=== PATIENT | male | born 1990 | race Hispanic/Latino ===

== ENCOUNTER 2019-01-07 10:41 | Inpatient (IN) | payer MEDICAID, OTHER ==
[2019-01-07] MEDS ORDERED: Sodium Chloride 0.9% 1,000 ML IV STA (11:10)
[2019-01-07 11:46] LABS: BASO # 0.03 K/mm3 (0.0-2.0); BASO % 0.3 % (0.0-3.0); EOS # 0.1 (0.0-0.7); EOS % 1.3 % (1.5-5.0); HEMOGLOBIN 14.1 g/dL (14.0-18.0); LYMPH # 1.9 (1.2-3.4); LYMPH % 17.4 % (22.0-35.0); MEAN CELL VOLUME 82.3 fl (80.0-105.0); MEAN CORPUSCULAR HEMOGLOBIN 27.5 pg (25.0-35.0); MEAN CORPUSCULAR HGB CONC 33.4 g/dl (31.0-37.0); MEAN PLATELET VOLUME 9.4 fl (7.0-11.0); MONO # 0.7 (0.1-0.6); MONO % 6.1 % (1.0-6.0); RBC 5.13 10^6/uL (3.5-6.1); RED CELL DISTRIBUTION WIDTH 14.8 % (11.5-14.5); WHITE BLOOD COUNT 10.8 10^3/uL (4.5-11.0)
[2019-01-07 11:55] LABS: INR 1.23; PARTIAL THROMBOPLASTIN TIME 37.8 Seconds (26.9-38.3); PROTHROMBIN TIME 13.9 SECONDS (9.4-12.5)
[2019-01-07 11:57] LABS: PH,URINE 7.5 (4.7-8.0); URINE APPEARANCE CLEAR (CLEAR); URINE BILIRUBIN NEGATIVE (NEGATIVE); URINE BLOOD TRACE-LYSED (NEGATIVE); URINE COLOR YELLOW (YELLOW); URINE GLUCOSE (UA) NEGATIVE (NEGATIVE); URINE LEUKOCYTE ESTERASE NEGATIVE Leu/uL (NEGATIVE); URINE PROTEIN NEGATIVE mg/dL (<30 mg/dL)
[2019-01-07 12:08] LABS: ALT/SGPT 467 U/L (7-56); AST/SGOT 350 U/L (17-59); BLOOD UREA NITROGEN 10 mg/dL (7-21); CALCIUM 9.2 mg/dL (8.4-10.5); GFR NON-AFRICAN AMERICAN > 60
[2019-01-07 12:16] LABS: URINE WBC 0 - 2 /hpf (0-6)
[2019-01-07 12:17] LABS: URINE BACTERIA MANY /hpf; URINE COARSE GRANULAR CAST TRACE /hpf; URINE EPITHELIAL CELLS 0 - 2 /hpf (0-5)
[2019-01-07 12:18] LABS: URINE AMORPHOUS SEDIMENT FEW /hpf
--- NOTE | 2019-01-07 12:20 | US ---
Date of service: 01/07/2019 HISTORY: focus RUQ, pancreas COMPARISON: CT abdomen and pelvis 07/24/2015 TECHNIQUE: Grayscale imaging was performed. FINDINGS: LIVER: Measures 21.0 cm. There is diffuse increased echogenicity of the liver parenchyma. No mass. No intrahepatic bile duct dilatation. GALLBLADDER: There are multiple gallstones. No wall thickening or pericholecystic fluid. The sonographic Pritchett's sign is negative. COMMON BILE DUCT: Measures 8.1 mm. Moderate diffuse dilatation of CT abdomen the common bile duct without evidence for choledocholithiasis PANCREAS: Obscured by bowel gas. RIGHT KIDNEY: Measures 12.5cm. Normal echogenicity. No calculus, mass, or hydronephrosis. LEFT KIDNEY: Measures 11.1cm. Normal echogenicity. No calculus, mass, or hydronephrosis. SPLEEN: Normal in size and contour. No mass. AORTA: No aneurysmal dilatation. IVC: Unremarkable. OTHER FINDINGS: None. IMPRESSION: 1. Cholelithiasis. Moderate diffuse dilatation of the common bile duct without sonographic evidence for choledocholithiasis. Please note this examination is limited due to patient body habitus and bowel gas. Correlation with MRCP is recommended for further evaluation and to exclude distal obstruction/choledocholithiasis. 2. Enlarged fatty liver. 3. Pancreas is obscured by bowel gas.
[2019-01-07 12:47] LABS: LIPASE 24648 U/L (23-300)
[2019-01-07 13:59] LABS: HDL CHOLESTEROL 37 mg/dL (29-60)
[2019-01-07 14:10] LABS: LDL CHOLESTEROL 103 mg/dL (0-129)
[2019-01-07] MEDS: Lactated Ringer's 1,000 ML IV SCH (14:13)
--- NOTE | 2019-01-07 14:49 | CP.PCM.HP ---
<Ariel Sommer - Last Filed: 01/07/19 15:56> History of Present Illness - History of Present Illness History of Present Illness: CC: RUQ/Epigastric Pain 28M w/ no significant pmh presented to [facility] on 01[place]07 w/ c/o of RUQ / Epigastric pain on going over the past 24 hours. Patient reported that he ate some spicy foods yesterday which brought about this current episode; reports he's had a previous episode of abdominal pain in the past this episode being significantly worse. Pain is described as a sharp which started in the RUQ and radiates into the Epigastric/LUQ regions. Denies any radiation to the back. Reports that eating makes his pain worse. Has had one episode of NBNB vomitus in the past 24 hours. 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 Allergies: NKDA Fam Hx: Mother DM, Father healthy Present on Admission - Present on Admission Any Indicators Present on Admission: No Review of Systems - Review of Systems All systems: reviewed and no additional remarkable complaints except Review of Systems: as per HPI Past Patient History - Infectious Disease Hx of Infectious Diseases: None - Past Social History Smoking Status: Never Smoked - CARDIAC Hx Cardiac Disorders: No - PULMONARY Hx Respiratory Disorders: No Hx Asthma: No - ENDOCRINE/METABOLIC Hx Endocrine Disorders: No Hx Diabetes Mellitus Type 1: No Hx Diabetes Mellitus Type 2: No - MUSCULOSKELETAL/RHEUMATOLOGICAL Hx Musculoskeletal Disorders: No - GASTROINTESTINAL Hx Gastrointestinal Disorders: No Hx Gall Bladder Disease: No Hx Gastroesophageal Reflux: No - PSYCHIATRIC Hx Substance Use: No - SURGICAL HISTORY Hx Appendectomy: No Other/Comment: left hamstring surgery - ANESTHESIA Hx Anesthesia: Yes Hx Anesthesia Reactions: No Hx Malignant Hyperthermia: No Meds Allergies/Adverse Reactions: Allergies Allergy/AdvReac Type Severity Reaction Status Date / Time No Known Allergies Allergy Verified 01/07/19 14:55 Physical Exam - Constitutional Appears: Well, Non-toxic, No Acute Distress - Head Exam Head Exam: ATRAUMATIC, NORMOCEPHALIC - Eye Exam Eye Exam: EOMI, Normal appearance. absent: Scleral icterus - Respiratory Exam Respiratory Exam: Clear to Auscultation Bilateral, NORMAL BREATHING PATTERN. absent: Rales, Rhonchi, Wheezes - Cardiovascular Exam Cardiovascular Exam: REGULAR RHYTHM, RRR. absent: Systolic Murmur - GI/Abdominal Exam Additional comments: Obese abdomen, soft non tender, mild discomfort on deep palpation. Pritchett's sign negative No guarding/ Rebound tenderness McBurney's point nontender - Extremities Exam Extremities exam: Positive for: normal inspection, pedal pulses present. Negative for: pedal edema - Back Exam Back exam: absent: CVA tenderness (L), CVA tenderness (R) - Neurological Exam Neurological exam: Alert, Oriented x3 - Psychiatric Exam Psychiatric exam: Normal Affect, Normal Mood - Skin Skin Exam: Dry, Intact, Normal Color, Warm Results - Vital Signs Recent Vital Signs: Last Vital Signs Temp 98.3 F 01/07/19 13:24 Pulse 85 01/07/19 13:24 Resp 18 01/07/19 13:24 BP 111/63 01/07/19 13:24 Pulse Ox 98 01/07/19 13:24 - Labs Result Diagrams: 01/07/19 11:20 01/07/19 11:20 Labs: Laboratory Results - last 24 hr 01/07/19 01/07/19 01/07/19 11:10 11:20 11:20 WBC 10.8 RBC 5.13 Hgb 14.1 Hct 42.2 MCV 82.3 MCH 27.5 MCHC 33.4 RDW 14.8 H Plt Count 315 MPV 9.4 Neut % (Auto) 74.9 H Lymph % (Auto) 17.4 L [place] % (Auto) 6.1 H Eos % (Auto) 1.3 L Baso % (Auto) 0.3 Lymph # (Auto) 1.9 [place] # (Auto) 0.7 H Eos # (Auto) 0.1 Baso # (Auto) 0.03 Absolute Neuts (auto) 8.07 H PT 13.9 H INR 1.23 APTT 37.8 Sodium Potassium Chloride Carbon Dioxide Anion Gap BUN Creatinine Est GFR ( Amer) Est GFR (Non-Af Amer) Random Glucose Calcium Magnesium Total Bilirubin AST ALT Alkaline Phosphatase Total Protein Albumin Globulin Albumin/Globulin Ratio Triglycerides Cholesterol HDL Cholesterol Lipase Urine Color Yellow Urine Appearance Clear Urine pH 7.5 Ur Specific [place] 1.010 Urine Protein Negative Urine Glucose (UA) Negative Urine Ketones Negative Urine Blood Trace-lysed H Urine Nitrate Negative Urine Bilirubin Negative Urine Urobilinogen 1.0 H Ur Leukocyte Esterase Negative Urine RBC 2 - 5 H Urine WBC 0 - 2 Ur Epithelial Cells 0 - 2 Amorphous Sediment Few Urine Bacteria Many Coarse Granular Casts Trace Urine Other Uyeast 01/07/19 01/07/19 11:20 11:20 WBC RBC Hgb Hct MCV MCH MCHC RDW Plt Count MPV Neut % (Auto) Lymph % (Auto) [place] % (Auto) Eos % (Auto) Baso % (Auto) Lymph # (Auto) [place] # (Auto) Eos # (Auto) Baso # (Auto) Absolute Neuts (auto) PT INR APTT Sodium 139 Potassium 3.8 Chloride 104 Carbon Dioxide 27 Anion Gap 12 BUN 10 Creatinine 0.5 L Est GFR ( Amer) > 60 Est GFR (Non-Af Amer) > 60 Random Glucose 101 Calcium 9.2 Magnesium 2.2 Total Bilirubin 1.3 AST 350 H ALT 467 H Alkaline Phosphatase 120 Total Protein 7.9 Albumin 4.0 Globulin 3.9 Albumin/Globulin Ratio 1.0 L Triglycerides 163 H Cholesterol 175 HDL Cholesterol 37 Lipase 36651 H Urine Color Urine Appearance Urine pH Ur Specific [place] Urine Protein Urine Glucose (UA) Urine Ketones Urine Blood Urine Nitrate Urine Bilirubin Urine Urobilinogen Ur Leukocyte Esterase Urine RBC Urine WBC Ur Epithelial Cells Amorphous Sediment Urine Bacteria Coarse Granular Casts Urine Other Assessment & Plan - Assessment and Plan (Free Text) Assessment: 28M w/ no significant pmh presented to [facility] [place] on 01/07 w/ c/o of RUQ / Epigastric pain and N/V. Admitted for management and treatment of gallstone pancreatitis. Plan: Gallstone Pancreatitis: Lipase Elevated Abd US: Cholelithiasis - dilatation of CBD w/o evidence of choledocolithiasis; w/o evidence of cholecystitis MRCP for further evaluation NPO Diet IVF - LR 200cc/hr Toradol 30mg Q6H Maximum 4 doses Zofran 4mg Q6H PRN Lipid Panel - Mild triglyceride elevation Surgery Consulted, Appreciate Reccs GI Consulted, Appreciate Reccs Fam Hx DM A1C Pending GI/DVT PPX SCD / Protonix IVP Dispo: Admit to med/surg Patient was seen, examined, Discussed w/ attending Dr. Sherry Sommer DO PGY1 - Internal Medicine Assembly Inspector - Hospitalist Admission Note - Date & Time Date: 01/07/19 Time: 16:16 <Sherry Sommer R - Last Filed: 01/07/19 17:25> Results - Vital Signs Recent Vital Signs: Last Vital Signs Temp 98.3 F 01/07/19 13:24 Pulse 85 01/07/19 13:24 Resp 18 01/07/19 13:24 BP 111/63 01/07/19 13:24 Pulse Ox 98 01/07/19 13:24 - Labs Result Diagrams: 01/07/19 11:20 01/07/19 11:20 Labs: Laboratory Results - last 24 hr 01/07/19 01/07/19 01/07/19 11:10 11:20 11:20 WBC 10.8 RBC 5.13 Hgb 14.1 Hct 42.2 MCV 82.3 MCH 27.5 MCHC 33.4 RDW 14.8 H Plt Count 315 MPV 9.4 Neut % (Auto) 74.9 H Lymph % (Auto) 17.4 L [place] % (Auto) 6.1 H Eos % (Auto) 1.3 L Baso % (Auto) 0.3 Lymph # (Auto) 1.9 [place] # (Auto) 0.7 H Eos # (Auto) 0.1 Baso # (Auto) 0.03 Absolute Neuts (auto) 8.07 H PT 13.9 H INR 1.23 APTT 37.8 Sodium Potassium Chloride Carbon Dioxide Anion Gap BUN Creatinine Est GFR ( Amer) Est GFR (Non-Af Amer) Random Glucose Calcium Magnesium Total Bilirubin AST ALT Alkaline Phosphatase Total Protein Albumin Globulin Albumin/Globulin Ratio Triglycerides Cholesterol LDL Cholesterol Direct HDL Cholesterol Lipase Urine Color Yellow Urine Appearance Clear Urine pH 7.5 Ur Specific [place] 1.010 Urine Protein Negative Urine Glucose (UA) Negative Urine Ketones Negative Urine Blood Trace-lysed H Urine Nitrate Negative Urine Bilirubin Negative Urine Urobilinogen 1.0 H Ur Leukocyte Esterase Negative Urine RBC 2 - 5 H Urine WBC 0 - 2 Ur Epithelial Cells 0 - 2 Amorphous Sediment Few Urine Bacteria Many Coarse Granular Casts Trace Urine Other Uyeast 01/07/19 01/07/19 11:20 11:20 WBC RBC Hgb Hct MCV MCH MCHC RDW Plt Count MPV Neut % (Auto) Lymph % (Auto) [place] % (Auto) Eos % (Auto) Baso % (Auto) Lymph # (Auto) [place] # (Auto) Eos # (Auto) Baso # (Auto) Absolute Neuts (auto) PT INR APTT Sodium 139 Potassium 3.8 Chloride 104 Carbon Dioxide 27 Anion Gap 12 BUN 10 Creatinine 0.5 L Est GFR ( Amer) > 60 Est GFR (Non-Af Amer) > 60 Random Glucose 101 Calcium 9.2 Magnesium 2.2 Total Bilirubin 1.3 AST 350 H ALT 467 H Alkaline Phosphatase 120 Total Protein 7.9 Albumin 4.0 Globulin 3.9 Albumin/Globulin Ratio 1.0 L Triglycerides 163 H Cholesterol 175 LDL Cholesterol Direct 103 HDL Cholesterol 37 Lipase 82430 H Urine Color Urine Appearance Urine pH Ur Specific [place] Urine Protein Urine Glucose (UA) Urine Ketones Urine Blood Urine Nitrate Urine Bilirubin Urine Urobilinogen Ur Leukocyte Esterase Urine RBC Urine WBC Ur Epithelial Cells Amorphous Sediment Urine Bacteria Coarse Granular Casts Urine Other Attending/Attestation - Attestation I have personally seen and examined this patient.: Yes I have fully participated in the care of the patient.: Yes I have reviewed all pertinent clinical information: Yes Notes (Text): Patient seen and examined by me with resident at approximately 1:25PM on 01/07/19 in the emergency room. Case including HPI, physical exam, and assessment and plan discussed with resident. Agree with above with following additions/corrections. Patient is 28-year-old male with no significant past medical history that presented to the emergency room with abdominal pain. Patient states that the pain started after lunch yesterday. He states he had some spicy food and felt some burning and pain in his abdomen. Patient states that he tried apple cider vinegar to make the "acid feeling in stomach go away." Patient states he had approximately 5 episodes of vomiting yesterday. States this happened approximately 3 years ago and the pain went away on its own. Patient states that the pain started in her right upper quadrant and has traveled to the left upper quadrant today. Patient states that tumeric tea seemed to help the pain. Patient describes the pain as a "burning." Patient states he had one episode of vomiting today. Pain comes and goes. Patient denies any current nausea or vomiting. No associated fevers or chills. No chest pain or shortness of breath. No headaches or dizziness. No diarrhea or constipation. No dysuria. 12 point review of systems reviewed by me. Please see above HPI, all other systems negative. Family history: Mother is alive and has diabetes. Father is alive and healthy. Physical exam: General: Awake and alert lying in bed in no acute distress. HEENT: Normocephalic, atraumatic. Extraocular muscles intact, pupils equal and reactive, no scleral icterus. Oropharynx is pink and moist. No pharyngeal erythema or exudate appreciated. Neck is supple. Hearing grossly intact. Ears and nose externally unremarkable. Cardiovascular: Normal rhythm. Normal S1 and S2. No murmurs, rubs, or gallops appreciated Pulmonary: Normal respiratory effort. No rhonchi, rales, or wheezing appreciated. Gastrointestinal: Soft, nondistended. Nontender (patient received pain medication prior to exam). Positive bowel sounds all 4 quadrants. No guarding. Negative Pritchett's sign. Morbidly obese abdomen. Musculoskeletal: Moves all extremities. No calf tenderness. No edema appreciated. Central nervous system: AAOx3. CN 2-12 grossly intact. 5/5 muscle strength all extremities. Dermatologic: Skin warm and dry. Assessment and plan: Patient is 28-year-old male with no significant past medical history that presented to the emergency room with abdominal pain. 1. Upper abdominal pain secondary to gallstone pancreatitis. Lipase 24,648. Abdominal ultrasound per radiologist showed cholelithiasis, moderate diffuse dilatation of the common bile duct without sonographic evidence for choledocholithiasis, examination is limited due to patient body habitus and bowel gas, correlation with MRCP is recommended; enlarged fatty liver; pancreas is obscured by bowel gas. GI consulted, follow-up recommendations. Surgical team following, recommendations appreciated. Patient made NPO. Placed on IV fluids. Follow up MRCP. 2. Transaminitis. May be secondary to gallstones. Follow up MRCP. Follow up repeat labs in AM. GI consulted, follow up recommendations. 3. Morbid obesity. Diet and exercise discussed with patient. Case was discussed in detail with the patient regarding current diagnosis and treatment plan. All questions answered.
--- NOTE | 2019-01-07 15:56 | CP.PCM.CON ---
History of Present Illness - History of Present Illness History of Present Illness: General Surgery Consult Note for Dr. Jo Patient is a 28-year-old morbidly obese M who presents to [facility] [place] with abdominal pain worsening over the last day and vomiting x1 day. Patient states that the pain is localized to his RUQ, non-radiating, intermittent, and achy in quality. Patient quantifies his pain at 9/10 at its worst. Patient admits that provoking factors include eating spicy foods/ marinara sauce. Patient denies alleviating factors. Patient reports he had similar pain for the past 2 years, but he says he was compelled to come to the ED today because the pain was "more severe" this time. Patient says that in previous similar episodes, his pain would be quelled by drinking turmeric and/or apple vinegar cider. Patient admits to associated non-bloody / non-bilious episodes of vomiting today. ROS otherwise unremarkable for fever, chills, hematochezia, and/or hematemesis. PMH: Patient denies PSH: Orthopedic leg surgery Medications: Patient denies Allergies: NKDA PMD: Jarocho Osei Review of Systems - Constitutional Constitutional: As Per HPI - Cardiovascular Cardiovascular: As Per HPI. absent: Chest Pain at Rest, Dyspnea on Exertion, Irregular Heart Rhythm, Lightheadedness, Paroxysmal Nocturnal Dyspnea, Pedal Edema, Syncope - Respiratory Respiratory: As Per HPI. absent: Cough, Dyspnea, Hemoptysis, Wheezing, Snoring, Pain on Inspiration, Chest Congestion, Excessive Mucous Production, Change in Mucous Color, Pain with Coughing - Gastrointestinal Gastrointestinal: Abdominal Pain, Vomiting. absent: Belching, Bloating, Coffee Ground Emesis, Heartburn, Hematemesis, Hematochezia, Loose Stools - Musculoskeletal Musculoskeletal: As Per HPI - Integumentary Integumentary: As Per HPI Past Patient History - Infectious Disease Hx of Infectious Diseases: None - Past Social History Smoking Status: Never Smoked - CARDIAC Hx Cardiac Disorders: No - PULMONARY Hx Respiratory Disorders: No Hx Asthma: No - ENDOCRINE/METABOLIC Hx Endocrine Disorders: No Hx Diabetes Mellitus Type 1: No Hx Diabetes Mellitus Type 2: No - MUSCULOSKELETAL/RHEUMATOLOGICAL Hx Musculoskeletal Disorders: No - GASTROINTESTINAL Hx Gastrointestinal Disorders: No Hx Gall Bladder Disease: No Hx Gastroesophageal Reflux: No - PSYCHIATRIC Hx Substance Use: No - SURGICAL HISTORY Hx Appendectomy: No Other/Comment: left hamstring surgery - ANESTHESIA Hx Anesthesia: Yes Hx Anesthesia Reactions: No Hx Malignant Hyperthermia: No Meds Allergies/Adverse Reactions: Allergies Allergy/AdvReac Type Severity Reaction Status Date / Time No Known Allergies Allergy Verified 01/07/19 14:55 - Medications Medications: Current Medications Lactated Ringer's (Lactated Ringer's) 1,000 mls @ 200 mls/hr IV .Q5H OLGA Last Admin: 01/07/19 14:13 Dose: 200 mls/hr Ketorolac Tromethamine (Toradol) 30 mg IVP Q6H PRN PRN Reason: Pain, moderate (4-7) Ondansetron HCl (Zofran Inj) 4 mg IVP Q6H PRN PRN Reason: Nausea/Vomiting Physical Exam - Constitutional Appears: Non-toxic, No Acute Distress - Head Exam Head Exam: ATRAUMATIC, NORMAL INSPECTION, NORMOCEPHALIC - Eye Exam Eye Exam: EOMI, Normal appearance Pupil Exam: NORMAL ACCOMODATION, PERRL - ENT Exam ENT Exam: Mucous Membranes Moist, Normal Exam - Neck Exam Neck exam: Positive for: Normal Inspection - Respiratory Exam Respiratory Exam: Clear to Auscultation Bilateral, NORMAL BREATHING PATTERN. absent: Accessory Muscle Use, Chest Wall Tenderness, Decreased Breath Sounds, Rales, Rhonchi, Wheezes, Respiratory Distress, Stridor - Cardiovascular Exam Cardiovascular Exam: REGULAR RHYTHM, +S1, +S2. absent: Bradycardia, Tachycardia, Irregular Rhythm, Systolic Murmur - GI/Abdominal Exam GI & Abdominal Exam: Normal Bowel Sounds, Soft. absent: Bruit, Guarding, Pulsatile Mass, Tenderness - Extremities Exam Extremities exam: Positive for: normal inspection - Back Exam Back exam: NORMAL INSPECTION - Neurological Exam Neurological exam: Alert, CN II-XII Intact, Oriented x3 - Psychiatric Exam Psychiatric exam: Normal Affect, Normal Mood - Skin Skin Exam: Dry, Intact, Normal Color, Warm Results - Vital Signs Recent Vital Signs: Last Vital Signs Temp 98.3 F 01/07/19 13:24 Pulse 85 01/07/19 13:24 Resp 18 01/07/19 13:24 BP 111/63 01/07/19 13:24 Pulse Ox 98 01/07/19 13:24 - Labs Result Diagrams: 01/07/19 11:20 01/07/19 11:20 Labs: Laboratory Results - last 24 hr 01/07/19 01/07/19 01/07/19 11:10 11:20 11:20 WBC 10.8 RBC 5.13 Hgb 14.1 Hct 42.2 MCV 82.3 MCH 27.5 MCHC 33.4 RDW 14.8 H Plt Count 315 MPV 9.4 Neut % (Auto) 74.9 H Lymph % (Auto) 17.4 L Lamb % (Auto) 6.1 H Eos % (Auto) 1.3 L Baso % (Auto) 0.3 Lymph # (Auto) 1.9 Lamb # (Auto) 0.7 H Eos # (Auto) 0.1 Baso # (Auto) 0.03 Absolute Neuts (auto) 8.07 H PT 13.9 H INR 1.23 APTT 37.8 Sodium Potassium Chloride Carbon Dioxide Anion Gap BUN Creatinine Est GFR ( Amer) Est GFR (Non-Af Amer) Random Glucose Calcium Magnesium Total Bilirubin AST ALT Alkaline Phosphatase Total Protein Albumin Globulin Albumin/Globulin Ratio Triglycerides Cholesterol LDL Cholesterol Direct HDL Cholesterol Lipase Urine Color Yellow Urine Appearance Clear Urine pH 7.5 Ur Specific [place] 1.010 Urine Protein Negative Urine Glucose (UA) Negative Urine Ketones Negative Urine Blood Trace-lysed H Urine Nitrate Negative Urine Bilirubin Negative Urine Urobilinogen 1.0 H Ur Leukocyte Esterase Negative Urine RBC 2 - 5 H Urine WBC 0 - 2 Ur Epithelial Cells 0 - 2 Amorphous Sediment Few Urine Bacteria Many Coarse Granular Casts Trace Urine Other Uyeast 01/07/19 01/07/19 11:20 11:20 WBC RBC Hgb Hct MCV MCH MCHC RDW Plt Count MPV Neut % (Auto) Lymph % (Auto) [place] % (Auto) Eos % (Auto) Baso % (Auto) Lymph # (Auto) [place] # (Auto) Eos # (Auto) Baso # (Auto) Absolute Neuts (auto) PT INR APTT Sodium 139 Potassium 3.8 Chloride 104 Carbon Dioxide 27 Anion Gap 12 BUN 10 Creatinine 0.5 L Est GFR ( Amer) > 60 Est GFR (Non-Af Amer) > 60 Random Glucose 101 Calcium 9.2 Magnesium 2.2 Total Bilirubin 1.3 AST 350 H ALT 467 H Alkaline Phosphatase 120 Total Protein 7.9 Albumin 4.0 Globulin 3.9 Albumin/Globulin Ratio 1.0 L Triglycerides 163 H Cholesterol 175 LDL Cholesterol Direct 103 HDL Cholesterol 37 Lipase 89191 H Urine Color Urine Appearance Urine pH Ur Specific [place] Urine Protein Urine Glucose (UA) Urine Ketones Urine Blood Urine Nitrate Urine Bilirubin Urine Urobilinogen Ur Leukocyte Esterase Urine RBC Urine WBC Ur Epithelial Cells Amorphous Sediment Urine Bacteria Coarse Granular Casts Urine Other Assessment & Plan - Assessment and Plan (Free Text) Assessment: Abdominal Pain Likely Secondary to Gallstone Pancreatitis Plan: - Aggressive fluid resuscitation - NPO - GI consulted (Dr. Manjarrez); Recommendations appreciated - Antiemetics - F/U on MRCP - Likely surgical intervention during this admission. Discussed with Dr. Sandro Higgins PGY1
[2019-01-07] MEDS ORDERED: Pneumococcal 23-Valent Vaccine IM ONE (17:25)
[2019-01-07] MEDS ORDERED: Influenza Vaccine 60 mcg/0.5 mL SYR (4YR UP) IM ONE (17:25)
[2019-01-07 17:26] VITALS: BMI 48.4
--- NOTE | 2019-01-07 23:05 | ED PDOC ---
Arrival/HPI - General Chief Complaint: Abdominal Pain Time Seen by Provider: 01/07/19 11:02 Historian: Patient - History of Present Illness Narrative History of Present Illness (Text): 28 y/o male with PMH of obesity presents to the ED c/o abdominal pain and vomiting x 1 day. Last vomited 1 hour prior to arrival. Pain is located epigastrically and is described as burning and sharp. Pt has experienced this pain before intermittently over the last 2 years and it usually resolves without intervention. Pain typically worsens after eating spicy foods and in stressful situations. Pt has not taken any medication for his symptoms. Denies alcohol use. Denies fevers, chills, diarrhea, constipation, urinary symptoms, testicular pain/swelling, hematemsis, melena, chest pain, SOB, back pain, neck pain, headache, dizziness, or any other associated symptoms. Past Medical History - Provider Review Nursing Documentation Reviewed: Yes - Past History Past History: No Previous - Infectious Disease Hx of Infectious Diseases: None - Cardiac Hx Cardiac Disorders: No - Pulmonary Hx Respiratory Disorders: No Hx Asthma: No - HEENT Hx HEENT Disorder: No - Renal Hx Renal Disorder: No - Endocrine/Metabolic Hx Endocrine Disorders: No Hx Diabetes Mellitus Type 1: No Hx Diabetes Mellitus Type 2: No - Hematological/Oncological Hx Blood Disorders: No - Integumentary Hx Dermatological Disorder: No - Musculoskeletal/Rheumatological Hx Musculoskeletal Disorders: No Hx Falls: No - Gastrointestinal Hx Gastrointestinal Disorders: No Hx Gall Bladder Disease: No Hx Gastroesophageal Reflux: No - Genitourinary/Gynecological Hx Genitourinary Disorders: No - Psychiatric Hx Psychophysiologic Disorder: Yes (OBESITY) Hx Substance Use: No - Past Surgical History Past Surgical History: No Previous - Surgical History Hx Appendectomy: No Other/Comment: left hamstring surgery -TENDON RELEASE - Anesthesia Hx Anesthesia: Yes Hx Anesthesia Reactions: No Hx Malignant Hyperthermia: No - Suicidal Assessment Plan: No Suicide Risk Precautions: None Family/Social History - Physician Review Nursing Documentation Reviewed: Yes Family/Social History: No Known Family HX Smoking Status: Never Smoked Hx Alcohol Use: No Hx Substance Use: No Allergies/Home Meds Allergies/Adverse Reactions: Allergies No Known Allergies Allergy (Verified 01/07/19 14:55) Review of Systems - Review of Systems Constitutional: Normal. absent: Fatigue, Fevers Eyes: Normal. absent: Vision Changes ENT: Normal. absent: Sore Throat, Sinus Congestion Respiratory: Normal. absent: SOB, Cough Cardiovascular: Normal. absent: Chest Pain, Palpitations Gastrointestinal: Abdominal Pain, Nausea, Vomiting, Appetite Changes. absent: Stool Changes, Hematochezia, Hematemesis Genitourinary Male: Normal. absent: Dysuria, Frequency Musculoskeletal: Normal. absent: Arthralgias, Back Pain, Neck Pain Skin: Normal. absent: Rash Neurological: Normal. absent: Headache, Dizziness Endocrine: Normal Hemo/Lymphatic: Normal Psychiatric: Normal Physical Exam Vital Signs Reviewed: Yes Vital Signs Temp Pulse Resp BP Pulse Ox 01/07/19 13:24 98.3 F 85 18 111/63 98 01/07/19 10:49 98.1 F 91 H 18 128/69 98 Temperature: Afebrile Blood Pressure: Normal Pulse: Regular Respiratory Rate: Normal Appearance: Positive for: Well-Appearing, Non-Toxic, Comfortable Pain Distress: None Mental Status: Positive for: Alert and Oriented X 3 - Systems Exam Head: Present: Atraumatic, Normocephalic Pupils: Present: PERRL Extroacular Muscles: Present: EOMI Conjunctiva: Present: Normal Mouth: Present: Moist Mucous Membranes Neck: Present: Normal Range of Motion. No: Meningeal Signs, Paraspinal T enderness Respiratory/Chest: Present: Clear to Auscultation, Good Air Exchange. No: Respiratory Distress, Accessory Muscle Use Cardiovascular: Present: Regular Rate and Rhythm, Normal S1, S2, Peripheal Pulses Present Abdomen: Present: Tenderness (RUQ, epigastric), Normal Bowel Sounds. No: Distention, Peritoneal Signs, Rebound, Guarding Back: Present: Normal Inspection. No: CVA Tenderness, Paraspinal Tenderness Upper Extremity: Present: Normal Inspection, Normal ROM, NORMAL PULSES, Neurovascularly Intact, Capillary Refill < 2s. No: Cyanosis, Edema, Temperature Abnormalties Lower Extremity: Present: Normal Inspection, NORMAL PULSES, Normal ROM, Neurovascularly Intact, Capillary Refill < 2 s. No: Edema, Temperature Abnormalties Neurological: Present: GCS=15, CN II-XII Intact, Speech Normal, Motor Func Grossly Intact, Normal Sensory Function, Gait Normal Skin: Present: Warm, Dry, Normal Color. No: Rashes Psychiatric: Present: Alert, Oriented x 3, Normal Insight, Normal Concentration, Normal Affect, Normal Mood Medical Decision Making ED Course and Treatment: Initial Plan: * CBC, CMP * Lipase * Coags * RUQ US * IVF * Zofran * Toradol RUQ US significant for cholelithiasis and common bile duct dilatation without evidence of choledocholithiasis or cholecystitis. Exam limited by body habitus. CT Abd/Pelvis cancelled secondary to positive ultrasound findings. AST/ALT elevated. Bilirubin normal Lipase markedly elevated, pt to be admitted for gallstone pancreatitis 12:35 Spoke with surgical corsetier, who will evaluate pt in ED under Dr. Jo. Pt to be admitted to hospitalist service. 12:[address] Sherry Sommer who accepted patient for inpatient admission to med/surg floor with diagnosis of gall stone pancreatitis, cholelithiasis, and elevated LFTs. Pt updated with change in disposition, and is resting comfortably in stretcher with stable vitals at this time. Blood cultures ordered. - Lab Interpretations Lab Results: PT 13.9 SECONDS (9.4-12.5) H 01/07/19 11:20 INR 1.23 01/07/19 11:20 APTT 37.8 Seconds (26.9-38.3) 01/07/19 11:20 Total Bilirubin 1.3 mg/dL (0.2-1.3) 01/07/19 11:20 AST 350 U/L (17-59) H 01/07/19 11:20 ALT 467 U/L (7-56) H 01/07/19 11:20 Alkaline Phosphatase 120 U/L (38-126) 01/07/19 11:20 Total Protein 7.9 g/dL (5.8-8.3) 01/07/19 11:20 Albumin 4.0 g/dL (3.0-4.8) 01/07/19 11:20 Globulin 3.9 gm/dL 01/07/19 11:20 Albumin/Globulin Ratio 1.0 (1.1-1.8) L 01/07/19 11:20 Lipase 13746 U/L (23-300) H 01/07/19 11:20 Urine Color Yellow (YELLOW) 01/07/19 11:10 Urine Appearance Clear (CLEAR) 01/07/19 11:10 Urine pH 7.5 (4.7-8.0) 01/07/19 11:10 Ur Specific [place] 1.010 (1.005-1.035) 01/07/19 11:10 Urine Protein Negative mg/dL (<30 mg/dL) 01/07/19 11:10 Urine Glucose (UA) Negative mg/dL (NEGATIVE) 01/07/19 11:10 Urine Ketones Negative mg/dL (NEGATIVE) 01/07/19 11:10 Urine Blood Trace-lysed (NEGATIVE) H 01/07/19 11:10 Urine Nitrate Negative (NEGATIVE) 01/07/19 11:10 Urine Bilirubin Negative (NEGATIVE) 01/07/19 11:10 Urine Urobilinogen 1.0 E.U./dL (<1 E.U./dL) H 01/07/19 11:10 Ur Leukocyte Esterase Negative Chika/uL (NEGATIVE) 01/07/19 11:10 Urine RBC 2 - 5 /hpf (0-2) H 01/07/19 11:10 Urine WBC 0 - 2 /hpf (0-6) 01/07/19 11:10 Ur Epithelial Cells 0 - 2 /hpf (0-5) 01/07/19 11:10 Amorphous Sediment Few /hpf (NONE) 01/07/19 11:10 Urine Bacteria Many /hpf (NONE) 01/07/19 11:10 Coarse Granular Casts Trace /hpf (NONE) 01/07/19 11:10 Urine Other [place] /hpf 01/07/19 11:10 01/07/19 11:20 01/07/19 11:20 Lab Results 01/07/19 11:20: Hemoglobin A1c 5.2 01/07/19 11:20: Triglycerides 163 H, Cholesterol 175, LDL Cholesterol Direct 103, HDL Cholesterol 37 01/07/19 11:20: Sodium 139, Potassium 3.8, Chloride 104, Carbon Dioxide 27, Anion Gap 12, BUN 10, Creatinine 0.5 L, Est GFR ( Amer) > 60, Est GFR (Non-Af Amer) > 60, Random Glucose 101, Calcium 9.2, Magnesium 2.2, Total Bilirubin 1.3, AST 350 H, ALT 467 H, Alkaline Phosphatase 120, Total Protein 7.9, Albumin 4.0, Globulin 3.9, Albumin/Globulin Ratio 1.0 L, Lipase 81301 H 01/07/19 11:20: PT 13.9 H, INR 1.23, APTT 37.8 01/07/19 11:20: WBC 10.8, RBC 5.13, Hgb 14.1, Hct 42.2, MCV 82.3, MCH 27.5, MCHC 33.4, RDW 14.8 H, Plt Count 315, MPV 9.4, Neut % (Auto) 74.9 H, Lymph % (Auto) 17.4 L, [place] % (Auto) 6.1 H, Eos % (Auto) 1.3 L, Baso % (Auto) 0.3, Lymph # (Auto) 1.9, [place] # (Auto) 0.7 H, Eos # (Auto) 0.1, Baso # (Auto) 0.03, Absolute Neuts (auto) 8.07 H 01/07/19 11:10: Urine Color Yellow, Urine Appearance Clear, Urine pH 7.5, Ur Specific [place] 1.010, Urine Protein Negative, Urine Glucose (UA) Negative, Urine Ketones Negative, Urine Blood Trace-lysed H, Urine Nitrate Negative, Urine Bilirubin Negative, Urine Urobilinogen 1.0 H, Ur Leukocyte Esterase Negative, Urine RBC 2 - 5 H, Urine WBC 0 - 2, Ur Epithelial Cells 0 - 2, Amorphous Sediment Few, Urine Bacteria Many, Coarse Granular Casts Trace, Urine Other [place] I have reviewed the lab results: Yes - RAD Interpretation Radiology Orders: 01/07/19 11:17 ABDOMEN COMPLETE [US] Stat Ranger Aide: Radiologist - Medication Orders Current Medication Orders: Lactated Ringer's (Lactated Ringer's) 1,000 mls @ 200 mls/hr IV .Q5H [facility] Last Admin: 01/07/19 14:13 Dose: 200 mls/hr eMAR Start Stop Document 01/07/19 14:13 [facility] (Rec: 01/07/19 14:13 [facility] [id number]) Intravenous Solution Start Date 01/07/19 Start Time 14:13 Ketorolac Tromethamine (Toradol) 30 mg IVP Q6H PRN PRN Reason: Pain, moderate (4-7) Ondansetron HCl (Zofran Inj) 4 mg IVP Q6H PRN PRN Reason: Nausea/Vomiting Pantoprazole Sodium (Protonix Inj) 40 mg IVP DAILY [facility] Last Admin: 01/07/19 16:31 Dose: 40 mg IVP Administration Document 01/07/19 16:31 [facility] [place]Rec: 01/07/19 16:31 [id number] Charges for Administration # of IVP Administrations 1 Discontinued Medications Sodium Chloride (Sodium Chloride 0.9%) 1,000 mls @ 1,000 mls/hr IV .Q1H [facility] Stop: 01/07/19 12:09 Last Admin: 01/07/19 11:41 Dose: 1,000 mls/hr eMAR Start Stop Document 01/07/19 11:41 [facility] (Rec: 01/07/19 11:41 [id number] Intravenous Solution Start Date 01/07/19 Start Time 11:41 End Date 01/07/19 End time 12:41 Total Infusion Time 60 Influenza Virus Vaccine (Flucelvax Quad 1380-3153 Syr) 60 mcg IM .ONCE ONE Stop: 01/07/19 17:26 Ketorolac Tromethamine (Toradol) 30 mg IVP STAT STA Stop: 01/07/19 11:11 Last Admin: 01/07/19 11:43 Dose: 30 mg MAR Pain Assessment Document 01/07/19 11:43 [place] (Rec: 01/07/19 11:44 [id number] Pain Reassessment Is this a pain reassessment? No Sleep Is patient sleeping during reassessment? No Presence of Pain Presence of Pain Yes Pain Scale Used Protocol: PSCALES Pain Scale Used Numeric Location Pain Location Body Site Abdomen Description Description Intermittent Intensity of Pain at present 4 IVP Administration Document 01/07/19 11:43 [facility] (Rec: 01/07/19 11:44 [facility] [id number]) Charges for Administration # of IVP Administrations 1 Ondansetron HCl (Zofran Inj) 4 mg IVP STAT STA Stop: 01/07/19 11:11 Last Admin: 01/07/19 11:44 Dose: 4 mg IVP Administration Document 01/07/19 11:44 [facility] (Rec: 01/07/19 11:44 [facility] [id number]) Charges for Administration # of IVP Administrations 1 Pneumococcal Polyvalent Vaccine (Pneumovax 23 Vaccine) 0.5 ml IM .ONCE ONE Stop: 01/07/19 17:26 Disposition/Present on Arrival - Present on Arrival Any Indicators Present on Arrival: No History of DVT/PE: No History of Uncontrolled Diabetes: No Urinary Catheter: No History of Decub. Ulcer: No History Surgical Site Infection Following: None - Disposition Have Diagnosis and Disposition been Completed?: Yes Diagnosis: Acute gallstone pancreatitis, Elevated LFTs Disposition: HOSPITALIZED Disposition Time: 12:55 Condition: GOOD
[2019-01-07] MEDS: guaiFENesin-DM 600-30 mg ER Tab PO SCH (23:51)
[2019-01-08] MEDS ORDERED: Morphine 2 mg/ml ISec IVP STA (00:06)
[2019-01-08] MEDS: Lactated Ringer's 1,000 ML IV SCH ×3 (06:10→18:27)
[2019-01-08 07:05] LABS: BASO # 0.02 K/mm3 (0.0-2.0); BASO % 0.3 % (0.0-3.0); EOS # 0.1 (0.0-0.7); EOS % 1.4 % (1.5-5.0); HEMOGLOBIN 12.4 g/dL (14.0-18.0); LYMPH # 2.5 (1.2-3.4); LYMPH % 31.4 % (22.0-35.0); MEAN CELL VOLUME 83.6 fl (80.0-105.0); MEAN CORPUSCULAR HEMOGLOBIN 27.4 pg (25.0-35.0); MEAN CORPUSCULAR HGB CONC 32.8 g/dl (31.0-37.0); MEAN PLATELET VOLUME 9.4 fl (7.0-11.0); MONO # 0.5 (0.1-0.6); MONO % 6.5 % (1.0-6.0); RBC 4.52 10^6/uL (3.5-6.1); RED CELL DISTRIBUTION WIDTH 15.1 % (11.5-14.5); WHITE BLOOD COUNT 7.9 10^3/uL (4.5-11.0)
[2019-01-08 07:28] LABS: ALBUMIN 3.3 g/dL (3.0-4.8); ALT/SGPT 332 U/L (7-56); AST/SGOT 134 U/L (17-59); BLOOD UREA NITROGEN 11 mg/dL (7-21); CALCIUM 8.5 mg/dL (8.4-10.5); GFR NON-AFRICAN AMERICAN > 60
[2019-01-08] MEDS: guaiFENesin-DM 600-30 mg ER Tab PO SCH ×2 (10:45→18:27)
--- NOTE | 2019-01-08 11:00 | CP.PCM.PN ---
Subjective - Date & Time of Evaluation Date of Evaluation: 01/08/19 Time of Evaluation: 10:57 - Subjective Subjective: PGY1 General Surgery Progress Note for Dr. Jo Patient seen and evaluated at bedside this morning. No acute events overnight. No new complaints. No nausea, vomiting, chest pain, shortness of breath, and/or diarrhea. Objective - Vital Signs/Intake and Output Vital Signs (last 24 hours): Temp Pulse Resp BP Pulse Ox 97.9 F 74 18 122/78 95 01/08/19 06:00 01/08/19 06:00 01/08/19 06:00 01/08/19 06:00 01/08/19 06:00 - Medications Medications: Current Medications Guaifenesin/Dextromethorphan (Mucinex-Dm 600-30 Mg) 1 tab PO BID [facility] Last Admin: 01/08/19 10:45 Dose: 1 tab Lactated Ringer's (Lactated Ringer's) 1,000 mls @ 200 mls/hr IV .Q5H [facility] Last Admin: 01/08/19 06:10 Dose: Not Given Ketorolac Tromethamine (Toradol) 30 mg IVP Q6H PRN PRN Reason: Pain, moderate (4-7) Last Admin: 01/07/19 23:27 Dose: 30 mg Ondansetron HCl (Zofran Inj) 4 mg IVP Q6H PRN PRN Reason: Nausea/Vomiting Pantoprazole Sodium (Protonix Inj) 40 mg IVP DAILY [facility] Last Admin: 01/08/19 10:45 Dose: 40 mg - Labs Labs: 01/08/19 06:50 01/08/19 06:50 PT 13.9 SECONDS (9.4-12.5) H 01/07/19 11:20 INR 1.23 01/07/19 11:20 APTT 37.8 Seconds (26.9-38.3) 01/07/19 11:20 - Additional Findings Additional findings: - Constitutional Appears: Non-toxic, No Acute Distress - Head Exam Head Exam: ATRAUMATIC, NORMAL INSPECTION, NORMOCEPHALIC - Eye Exam Eye Exam: EOMI, Normal appearance Pupil Exam: NORMAL ACCOMODATION, PERRL - ENT Exam ENT Exam: Mucous Membranes Moist, Normal Exam - Neck Exam Neck exam: Positive for: Normal Inspection - Respiratory Exam Respiratory Exam: NORMAL BREATHING PATTERN. absent: Accessory Muscle Use, Respiratory Distress - Cardiovascular Exam Cardiovascular Exam: absent: Tachycardia - GI/Abdominal Exam GI & Abdominal Exam: Soft. absent: Guarding, Pulsatile Mass, Tenderness - Extremities Exam Extremities exam: Positive for: normal inspection - Back Exam Back exam: NORMAL INSPECTION - Neurological Exam Neurological exam: Alert, CN II-XII Intact, Oriented x3 - Psychiatric Exam Psychiatric exam: Normal Affect, Normal Mood - Skin Skin Exam: Dry, Intact, Normal Color, Warm Assessment and Plan - Assessment and Plan (Free Text) Assessment: Abdominal Pain Likely Secondary to Gallstone Pancreatitis Plan: - Risks and Benefits of cholecystectomy were discussed with Patient and Patient's next-of-kin. All questions answered. Patient both understands and a grees. - Aggressive fluid resuscitation - NPO - GI consulted (Dr. Manjarrez); Recommendations appreciated - Antiemetics - Likely surgical intervention during this admission. Discussed with Dr. Sandro Higgins PGY1
--- NOTE | 2019-01-08 11:07 | CON ---
DATE: 01/08/2019 HISTORY OF PRESENT ILLNESS: I saw Mr. Luke this morning. He is a 28-year-old obese male with complaints of severe epigastric pain with nausea which had continued over the previous 36 hours. The patient noted that the urine was dark prior to admission. He denied any rectal bleeding or hematemesis. The patient was aware that he had gallstones in the past and also noted that he has had multiple episodes similar to this which usually on an average lasted 2 days. After the 48-hour pain episode, the pain would dissipate dramatically. The patient has no significant medical history except for the above. He has tried numerous attempts for weight loss but unsuccessful. He has no idea what his lipid profile was. PHYSICAL EXAMINATION: VITAL SIGNS: I reviewed this patient's vital signs. HEENT: Noncontributory. LUNGS: Clear to auscultation. HEART: Regular rhythm. ABDOMEN: Protuberant. No tenderness elicited in any quadrant. LABORATORY DATA: Review of laboratory data indicates as of yesterday at 11:20, bilirubin of 1.2 with AST and ALT ratio of 350/467. His alk phos is 120. His triglycerides were 163, cholesterol 175. Lipase on admission 24,648. H and H as of yesterday was . Review of the abdominal ultrasound indicates the liver is diffusely echogenic, suggestive of hepatic steatosis. There are multiple gallstones. No pericholecystic fluid. Bile duct is 8.1, but no evidence of choledocholithiasis. ASSESSMENT: This is a 28-year-old weight-challenged male with complaints of severe abdominal pain, most likely attributed to biliary colic. At the bedside this morning, the patient is pain free, probably due to the fact that the stone that may have been in the bile duct passed on its own. He has noted also that his urine is much clear than prior to admission. At the current time point, the patient's orders indicate that he has a surgical consult with Dr. Jo. MEDICATIONS: He is on currently include lactated Ringer's, pantoprazole, IV fluids, Zofran every 6. He is currently n.p.o. ASSESSMENT AND PLAN: At this point in time, if the patient's body habitus will permit, an MRI will be in the patient's best interest. A cholecystectomy should be strongly entertained by Surgery. Whether he will need an ERCP will be dictated by results of the MRCP study. At least for the current time point, would continue the current orders. The patient will be followed up by house staff later on this morning. Manjinder Manjarrez DO, PhD MARGARET
[2019-01-08] MEDS ORDERED: Lactated Ringer's 1,000 ML IV SCH (13:44)
--- NOTE | 2019-01-08 15:48 | CP.PCM.PN ---
<Ariel Sommer - Last Filed: 01/08/19 15:54> Subjective - Date & Time of Evaluation Date of Evaluation: 01/08/19 Time of Evaluation: 15:43 - Subjective Subjective: Ariel Sommer DO PGY1 - Internal Medicine [employer] -Hospitalist Progress Note Patient seen and evaluated at bedside this morning. NO complaints of abdominal pain, no nausea, vomiting, fevers, chills. Reporting that he is hungry. Objective - Vital Signs/Intake and Output Vital Signs (last 24 hours): Temp Pulse Resp BP Pulse Ox 97.9 F 18 L 59 H 142/89 96 01/08/19 14:00 01/08/19 14:00 01/08/19 14:00 01/08/19 14:00 01/08/19 14:00 - Medications Medications: Current Medications Guaifenesin/Dextromethorphan (Mucinex-Dm 600-30 Mg) 1 tab PO BID [facility] Last Admin: 01/08/19 10:45 Dose: 1 tab Lactated Ringer's (Lactated Ringer's) 1,000 mls @ 150 mls/hr IV .Q6H40M [facility] Ketorolac Tromethamine (Toradol) 30 mg IVP Q6H PRN PRN Reason: Pain, moderate (4-7) Last Admin: 01/07/19 23:27 Dose: 30 mg Ondansetron HCl (Zofran Inj) 4 mg IVP Q6H PRN PRN Reason: Nausea/Vomiting Pantoprazole Sodium (Protonix Inj) 40 mg IVP DAILY [facility] Last Admin: 01/08/19 10:45 Dose: 40 mg - Labs Labs: 01/08/19 06:50 01/08/19 06:50 PT 13.9 SECONDS (9.4-12.5) H 01/07/19 11:20 INR 1.23 01/07/19 11:20 APTT 37.8 Seconds (26.9-38.3) 01/07/19 11:20 - Constitutional Appears: Well, Non-toxic, No Acute Distress - Head Exam Head Exam: ATRAUMATIC, NORMOCEPHALIC - Eye Exam Eye Exam: EOMI, Normal appearance. absent: Scleral icterus - Respiratory Exam Respiratory Exam: Clear to Auscultation Bilateral, NORMAL BREATHING PATTERN. absent: Rales, Rhonchi, Wheezes - Cardiovascular Exam Cardiovascular Exam: REGULAR RHYTHM, RRR. absent: Systolic Murmur - GI/Abdominal Exam Additional comments: Soft nontender, No RUQ tenderness, Pritchett's negative - Extremities Exam Extremities exam: Positive for: normal inspection, pedal pulses present. Negati ve for: pedal edema - Back Exam Back exam: absent: CVA tenderness (L), CVA tenderness (R) - Neurological Exam Neurological exam: Alert, Oriented x3 - Psychiatric Exam Psychiatric exam: Normal Affect, Normal Mood - Skin Skin Exam: Dry, Intact, Normal Color, Warm Assessment and Plan - Assessment and Plan (Free Text) Assessment: 28M w/ no significant pmh presented to [facility] [place] [facility] on 01/07 w/ c/o of RUQ / Epigastric pain and N/V. Admitted for management and treatment of gallstone pancreatitis. Plan: Gallstone Pancreatitis: Lipase Elevated Abd US: Cholelithiasis - dilatation of CBD w/o evidence of choledocolithiasis; w/o evidence of cholecystitis No abd pain overnight; Patient did not ask for PRN analgesic MRCP unable to be completed due to patient's body habitus ERCP not required at this time as per GI Patient is tentatively to undergo cholecystectomy w/ introperatiave cholangiogram as per surgery later this week Diet advanced to CLD IVF decreased to 150cc/hr C/w Toradol 30mg Q6H Maximum 4 doses C/w Zofran 4mg Q6H PRN Lipid Panel - Mild triglyceride elevation Surgery Consulted, Appreciate Reccs GI Consulted, Appreciate Reccs GI/DVT PPX SCD / Protonix IVP Dispo: Cont management on med/surg Patient was seen, examined, Discussed w/ attending Dr. Sherry Sommer DO PGY1 - Internal Medicine [employer] - Hospitalist Progress Note <Sherry Sommer R - Last Filed: 01/08/19 17:29> Objective - Vital Signs/Intake and Output Vital Signs (last 24 hours): Temp Pulse Resp BP Pulse Ox 97.9 F 18 L 59 H 142/89 96 01/08/19 14:00 01/08/19 14:00 01/08/19 14:00 01/08/19 14:00 01/08/19 14:00 - Medications Medications: Current Medications Guaifenesin/Dextromethorphan (Mucinex-Dm 600-30 Mg) 1 tab PO BID [facility] Last Admin: 01/08/19 10:45 Dose: 1 tab Lactated Ringer's (Lactated Ringer's) 1,000 mls @ 150 mls/hr IV .Q6H40M [facility] Ketorolac Tromethamine (Toradol) 30 mg IVP Q6H PRN PRN Reason: Pain, moderate (4-7) Last Admin: 01/07/19 23:27 Dose: 30 mg Ondansetron HCl (Zofran Inj) 4 mg IVP Q6H PRN PRN Reason: Nausea/Vomiting Pantoprazole Sodium (Protonix Inj) 40 mg IVP DAILY [facility] Last Admin: 01/08/19 10:45 Dose: 40 mg - Labs Labs: 01/08/19 06:50 01/08/19 06:50 PT 13.9 SECONDS (9.4-12.5) H 01/07/19 11:20 INR 1.23 01/07/19 11:20 APTT 37.8 Seconds (26.9-38.3) 01/07/19 11:20 Attending/Attestation - Attestation I have personally seen and examined this patient.: Yes I have fully participated in the care of the patient.: Yes I have reviewed all pertinent clinical information, including history, physical exam and plan: Yes Notes (Text): Patient seen and examined by me with resident at approximately 11:50AM on 12/14 05/02. Case including HPI, physical exam, and assessment and plan discussed with resident. Agree with above with following additions/corrections. Patient is 28-year-old male with no significant past medical history that presented to the emergency room with abdominal pain. Patient states he is feeling much better today. No nausea or vomiting. Patient states that he is only having abdominal soreness "like pulled muscles" today. Patient denies any fevers or chills. No chest pain or shortness of breath. No headaches or dizziness. No diarrhea or constipation. No dysuria. Physical exam: General: Awake and alert sitting up in chair in no acute distress. HEENT: Normocephalic, atraumatic. Extraocular muscles intact, pupils equal and reactive, no scleral icterus. Oropharynx is pink and moist. No pharyngeal erythema or exudate appreciated. Neck is supple. Cardiovascular: Normal rhythm. Normal S1 and S2. No murmurs, rubs, or gallops appreciated Pulmonary: Normal respiratory effort. No rhonchi, rales, or wheezing appreciated. Gastrointestinal: Soft, nondistended. Nontender. Positive bowel sounds all 4 quadrants. No guarding. Negative Pritchett's sign. Morbidly obese abdomen. Musculoskeletal: Moves all extremities. No calf tenderness. No edema appreciated. Central nervous system: AAOx3. CN 2-12 grossly intact. 5/5 muscle strength all extremities. Dermatologic: Skin warm and dry. Assessment and plan: Patient is 28-year-old male with no significant past medical history that presented to the emergency room with abdominal pain. 1. Upper abdominal pain secondary to gallstone pancreatitis. Lipase 24,648 on admission. Continue IV fluids. Advanced to clear liquid diet. Patient unable to get MRCP secondary to body habitus. Patient for cholecystectomy 01/10/19. Abdominal ultrasound per radiologist showed cholelithiasis, moderate diffuse dilatation of the common bile duct without sonographic evidence for choledocholithiasis, examination is limited due to patient body habitus and bowel gas, correlation with MRCP is recommended; enlarged fatty liver; pancreas is obscured by bowel gas. GI recommendations appreciated. Surgical team recommendations appreciated. 2. Transaminitis. Improving. May have passed a stone. Continue to monitor. 3. Morbid obesity. Diet and exercise discussed with patient. Case was discussed in detail with the patient regarding current diagnosis and treatment plan. All questions answered.
[2019-01-09] MEDS: Lactated Ringer's 1,000 ML IV SCH (06:54)
[2019-01-09 07:27] LABS: BASO # 0.01 K/mm3 (0.0-2.0); BASO % 0.1 % (0.0-3.0); EOS # 0.1 (0.0-0.7); EOS % 1.5 % (1.5-5.0); HEMOGLOBIN 12.2 g/dL (14.0-18.0); LYMPH # 2.4 (1.2-3.4); LYMPH % 30.4 % (22.0-35.0); MEAN CORPUSCULAR HEMOGLOBIN 27.2 pg (25.0-35.0); MEAN PLATELET VOLUME 8.6 fl (7.0-11.0); MONO # 0.5 (0.1-0.6); MONO % 5.9 % (1.0-6.0); RBC 4.48 10^6/uL (3.5-6.1); RED CELL DISTRIBUTION WIDTH 14.8 % (11.5-14.5); WHITE BLOOD COUNT 7.8 10^3/uL (4.5-11.0)
[2019-01-09 07:56] LABS: ALBUMIN 3.5 g/dL (3.0-4.8); ALT/SGPT 230 U/L (7-56); AST/SGOT 64 U/L (17-59); BLOOD UREA NITROGEN 6 mg/dL (7-21); GFR NON-AFRICAN AMERICAN > 60
[2019-01-09] MEDS: guaiFENesin-DM 600-30 mg ER Tab PO SCH ×2 (10:28→18:02)
--- NOTE | 2019-01-09 11:17 | CP.PCM.PN ---
Subjective - Date & Time of Evaluation Date of Evaluation: 01/09/19 Time of Evaluation: 11:15 - Subjective Subjective: PGY1 General Surgery Progress Note for Dr. Jo Patient seen and evaluated at bedside this morning. No acute events overnight. No new complaints. No nausea, vomiting, chest pain, shortness of breath, and/or diarrhea. Plan is for OR tomorrow. Objective - Vital Signs/Intake and Output Vital Signs (last 24 hours): Temp Pulse Resp BP Pulse Ox 98.3 F 67 16 110/73 98 01/09/19 06:00 01/09/19 06:00 01/09/19 06:00 01/09/19 06:00 01/09/19 06:00 Intake and Output: 01/09/19 01/09/19 06:59 18:59 Intake Total 2220 Balance 2220 - Medications Medications: Current Medications Guaifenesin/Dextromethorphan (Mucinex-Dm 600-30 Mg) 1 tab PO BID [facility] Last Admin: 01/09/19 10:28 Dose: 1 tab Ketorolac Tromethamine (Toradol) 30 mg IVP Q6H PRN PRN Reason: Pain, moderate (4-7) Last Admin: 01/07/19 23:27 Dose: 30 mg Ondansetron HCl (Zofran Inj) 4 mg IVP Q6H PRN PRN Reason: Nausea/Vomiting Pantoprazole Sodium (Protonix Inj) 40 mg IVP DAILY [facility] Last Admin: 01/09/19 10:28 Dose: 40 mg - Labs Labs: 01/09/19 07:00 01/09/19 07:00 PT 13.9 SECONDS (9.4-12.5) H 01/07/19 11:20 INR 1.23 01/07/19 11:20 APTT 37.8 Seconds (26.9-38.3) 01/07/19 11:20 - Additional Findings Additional findings: - Constitutional Appears: Non-toxic, No Acute Distress - Head Exam Head Exam: ATRAUMATIC, NORMAL INSPECTION, NORMOCEPHALIC - Eye Exam Eye Exam: EOMI, Normal appearance Pupil Exam: NORMAL ACCOMODATION, PERRL - ENT Exam ENT Exam: Mucous Membranes Moist, Normal Exam - Neck Exam Neck exam: Positive for: Normal Inspection - Respiratory Exam Respiratory Exam: NORMAL BREATHING PATTERN. absent: Accessory Muscle Use, Respiratory Distress - Cardiovascular Exam Cardiovascular Exam: absent: Tachycardia - GI/Abdominal Exam GI & Abdominal Exam: Soft. absent: Guarding, Pulsatile Mass, Tenderness - Extremities Exam Extremities exam: Positive for: normal inspection - Back Exam Back exam: NORMAL INSPECTION - Neurological Exam Neurological exam: Alert, CN II-XII Intact, Oriented x3 - Psychiatric Exam Psychiatric exam: Normal Affect, Normal Mood - Skin Skin Exam: Dry, Intact, Normal Color, Warm Assessment and Plan - Assessment and Plan (Free Text) Assessment: Patient is a 28-year-old M with abdominal pain secondary to gallstone pancreatitis Plan: - OR tomorrow afternoon - Risks and Benefits of cholecystectomy were discussed with Patient and Patient's next-of-kin. All questions answered. Patient both understands and agrees. - Aggressive fluid resuscitation - NPO - GI consulted (Dr. Manjarrez); Recommendations appreciated - Antiemetics Discussed with Dr. Sandro Higgins PGY1
--- NOTE | 2019-01-09 12:14 | PN ---
DATE: 01/09/2019 SUBJECTIVE: I saw Mr. Luke this morning. He is a 28-year-old white challenged male with complaints of severe right upper quadrant pain consistent with biliary colic. The patient feel significantly improved this morning with no abdominal pain. Urine is normal. No nausea or vomiting. Tolerated liquid diet with no problems. He still contemplating the issue of gallbladder surgery. I reviewed this case with house staff yesterday. At the bedside this morning, the patient is pain free. We discussed the gallbladder procedure, biliary anatomy and rationale for cholecystectomy in detail. PHYSICAL EXAMINATION: VITAL SIGNS: I reviewed this patient's vital signs. HEENT: Noncontributory. LUNGS: Clear to auscultation. HEART: Regular rhythm. ABDOMEN: Protuberant. No tenderness elicited. LABORATORY DATA: Indicate H and H 12 and 34. INR within normal limits. Chemistry indicates the AST has decreased from 350 to 64, ALT is decreased from 467 to 230. Bilirubin also decreased from 1.3 to 0.5. There is no followup lipase noted. Labs consistent with the patient passing a biliary stone. The patient was ordered an MRI, but unable to fit in the machine. I reviewed the provider relations consultant notes. ASSESSMENT AND PLAN: This is a 28-year-old obese male with complaints of severe biliary colic related to probable gallstone pancreatitis. Overall plan, I can understand is possible cholecystectomy dictated as per surgical service. Because the gallstone has passed I feel at this particular point time that ERCP is not required. Surgery will probably perform an IOC if the patient agrees with the procedure. At this point in time, would continue the patient on same medication. Diet advanced as per surgery and medical staff. Manjinder Manjarrez DO, PhD MARGARET
--- NOTE | 2019-01-09 16:22 | CP.PCM.PN ---
<Ariel Sommer - Last Filed: 01/09/19 16:19> Subjective - Date & Time of Evaluation Date of Evaluation: 01/09/19 Time of Evaluation: 09:00 - Subjective Subjective: Ariel Sommer DO PGY1 - Internal Medicine [employer] - Hospitalist Progress Note Patient was seen and examined this morning at bedside. Family present at bedside Afebrile overnight, Tolerating CLD well. No complaints of abd pain, n/v/d/c, chest pain, sob. Patient aware of procedure tomorrow; All questions answered Objective - Vital Signs/Intake and Output Vital Signs (last 24 hours): Temp Pulse Resp BP Pulse Ox 98.3 F 66 18 99/67 L 96 01/09/19 14:00 01/09/19 14:00 01/09/19 14:00 01/09/19 14:00 01/09/19 14:00 Intake and Output: 01/09/19 01/09/19 06:59 18:59 Intake Total 2220 Balance 2220 - Medications Medications: Current Medications Guaifenesin/Dextromethorphan (Mucinex-Dm 600-30 Mg) 1 tab PO BID [facility] Last Admin: 01/09/19 10:28 Dose: 1 tab Ondansetron HCl (Zofran Inj) 4 mg IVP Q6H PRN PRN Reason: Nausea/Vomiting Pantoprazole Sodium (Protonix Inj) 40 mg IVP DAILY [facility] Last Admin: 01/09/19 10:28 Dose: 40 mg - Labs Labs: 01/09/19 07:00 01/09/19 07:00 PT 13.9 SECONDS (9.4-12.5) H 01/07/19 11:20 INR 1.23 01/07/19 11:20 APTT 37.8 Seconds (26.9-38.3) 01/07/19 11:20 - Constitutional Appears: Well, Non-toxic, No Acute Distress - Head Exam Head Exam: ATRAUMATIC, NORMOCEPHALIC - Eye Exam Eye Exam: EOMI, Normal appearance. absent: Scleral icterus - Respiratory Exam Respiratory Exam: Clear to Auscultation Bilateral, NORMAL BREATHING PATTERN. absent: Rales, Rhonchi, Wheezes - Cardiovascular Exam Cardiovascular Exam: REGULAR RHYTHM, RRR. absent: Systolic Murmur - GI/Abdominal Exam Additional comments: Soft nontender, No RUQ tenderness, Pritchett's negative - Extremities Exam Extremities exam: Positive for: normal inspection, pedal pulses present. Nega tive for: pedal edema - Back Exam Back exam: absent: CVA tenderness (L), CVA tenderness (R) - Neurological Exam Neurological exam: Alert, Oriented x3 - Psychiatric Exam Psychiatric exam: Normal Affect, Normal Mood - Skin Skin Exam: Dry, Intact, Normal Color, Warm Assessment and Plan - Assessment and Plan (Free Text) Assessment: 28M w/ no significant pmh [place] [facility] [place] w/ c/o of RUQ / Epigastric pain and N/V. Admitted for management and treatment of gallstone pancreatitis. Plan: Gallstone Pancreatitis: Lipase Elevated Abd US: Cholelithiasis - dilatation of CBD w/o evidence of choledocolithiasis; w/o evidence of cholecystitis MRCP unable to be completed due to patient's body habitus ERCP not required at this time as per GI Cholecystectomy w/ intraoperative cholangiogram planned for tomorrow On CLD at this time NPO past midnight tonight Stopped Toradol IVF DC'd C/w Zofran 4mg Q6H PRN Lipid Panel - Mild triglyceride elevation Surgery Following GI Following GI/DVT PPX SCD / Protonix IVP Dispo: Cont management on med/surg; OR tomorrow for cholecystectomy w/ intraoperative cholangiogram Patient was seen, examined, Discussed w/ attending Dr. Sherry Sommer DO PGY1 - Internal Medicine [employer] - Hospitalist Progress Note <Sherry Sommer R - Last Filed: 01/10/19 07:57> Objective - Vital Signs/Intake and Output Vital Signs (last 24 hours): Temp Pulse Resp BP Pulse Ox 98 F 89 20 107/63 94 L 01/10/19 06:00 01/10/19 06:00 01/10/19 06:00 01/10/19 06:00 01/10/19 06:00 Intake and Output: 01/10/19 01/10/19 06:59 18:59 Intake Total 360 Output Total 1 Balance 359 - Medications Medications: Current Medications Guaifenesin/Dextromethorphan (Mucinex-Dm 600-30 Mg) 1 tab PO BID [facility] Last Admin: 01/09/19 18:02 Dose: 1 tab Ondansetron HCl (Zofran Inj) 4 mg IVP Q6H PRN PRN Reason: Nausea/Vomiting Pantoprazole Sodium (Protonix Inj) 40 mg IVP DAILY [facility] Last Admin: 01/09/19 10:28 Dose: 40 mg - Labs Labs: 01/10/19 07:20 01/09/19 07:00 PT 14.6 SECONDS (9.4-12.5) H 01/10/19 07:20 INR 1.29 01/10/19 07:20 APTT 40.5 Seconds (26.9-38.3) H 01/10/19 07:20 Attending/Attestation - Attestation I have personally seen and examined this patient.: Yes I have fully participated in the care of the patient.: Yes I have reviewed all pertinent clinical information, including history, physical exam and plan: Yes Notes (Text): Patient seen and examined by me with resident at approximately 11AM on 01/09/19. Case including HPI, physical exam, and assessment and plan discussed with resident. Agree with above with following additions/corrections. Patient is 28-year-old male with no significant past medical history that presented to the emergency room with abdominal pain. Patient states he is feeling better. Tolerating liquid diet. No more abdominal pain. No nausea or vomiting. No fevers or chills. No chest pain or shortness of breath. No headaches or dizziness. No diarrhea or constipation. No dysuria. Physical exam: General: Awake and alert sitting up in chair in no acute distress. HEENT: Normocephalic, atraumatic. Extraocular muscles intact, pupils equal and reactive, no scleral icterus. Oropharynx is pink and moist. No pharyngeal erythema or exudate appreciated. Neck is supple. Cardiovascular: Normal rhythm. Normal S1 and S2. No murmurs, rubs, or gallops appreciated Pulmonary: Normal respiratory effort. No rhonchi, rales, or wheezing appre ciated. Gastrointestinal: Soft, nondistended. Nontender. Positive bowel sounds all 4 quadrants. No guarding. Negative Pritchett's sign. Morbidly obese abdomen. Musculoskeletal: Moves all extremities. No calf tenderness. No edema appreciated. Central nervous system: AAOx3. CN 2-12 grossly intact. 5/5 muscle strength all extremities. Dermatologic: Skin warm and dry. Assessment and plan: Patient is 28-year-old male with no significant past medical history that presented to the emergency room with abdominal pain. 1. Upper abdominal pain secondary to gallstone pancreatitis. Lipase 24,648 on admission. Tolerating diet. IV fluids decreased. Patient for cholecystectomy tomorrow. Patient unable to get MRCP secondary to body habitus. Abdominal ultrasound per radiologist showed cholelithiasis, moderate diffuse dilatation of the common bile duct without sonographic evidence for choledocholithiasis, examination is limited due to patient body habitus and bowel gas, correlation with MRCP is recommended; enlarged fatty liver; pancreas is obscured by bowel gas. GI recommendations appreciated. Surgical team recommendations appreciated. 2. Transaminitis. Downtrending. May have passed a stone. Continue to monitor. 3. Morbid obesity. Diet and exercise discussed with patient. Case was discussed in detail with the patient regarding current diagnosis and treatment plan. All questions answered.
[2019-01-10 07:45] LABS: BASO # 0.02 K/mm3 (0.0-2.0); BASO % 0.2 % (0.0-3.0); EOS # 0.1 (0.0-0.7); EOS % 1.4 % (1.5-5.0); HEMOGLOBIN 13.2 g/dL (14.0-18.0); LYMPH # 2.6 (1.2-3.4); MEAN CELL VOLUME 82.5 fl (80.0-105.0); MEAN CORPUSCULAR HEMOGLOBIN 27.8 pg (25.0-35.0); MEAN CORPUSCULAR HGB CONC 33.8 g/dl (31.0-37.0); MONO # 0.5 (0.1-0.6); MONO % 5.1 % (1.0-6.0); RBC 4.74 10^6/uL (3.5-6.1); RED CELL DISTRIBUTION WIDTH 14.6 % (11.5-14.5); WHITE BLOOD COUNT 9.2 10^3/uL (4.5-11.0)
[2019-01-10 07:53] LABS: INR 1.29; PARTIAL THROMBOPLASTIN TIME 40.5 Seconds (26.9-38.3); PROTHROMBIN TIME 14.6 SECONDS (9.4-12.5)
[2019-01-10] MEDS ORDERED: Bupivacaine 0.5% 50 ML IJ ONE ×2 (08:02→12:25)
[2019-01-10] MEDS ORDERED: Iohexol 240 (50 ml) ONE (08:02)
[2019-01-10] MEDS ORDERED: Bupivacaine Liposomal Inj 20 ml ONE (08:02)
[2019-01-10 08:06] LABS: ALBUMIN 4.1 g/dL (3.0-4.8); ALT/SGPT 219 U/L (7-56); AST/SGOT 93 U/L (17-59); BLOOD UREA NITROGEN 8 mg/dL (7-21); GFR NON-AFRICAN AMERICAN > 60
--- NOTE | 2019-01-10 08:14 | PN ---
DATE: 01/10/2019 SUBJECTIVE: I evaluated Mr. Luke this morning. He is a 28-year-old weight challenged male mainly with complaints of severe pain in a scenario indicative of biliary colic with gallstone pancreatitis. At the bedside this morning, the patient is pain free. No nausea or vomiting. No rectal bleeding. The patient tolerated the clear liquids without any problems. Anxious about his surgical procedure today. PHYSICAL EXAMINATION VITAL SIGNS: I reviewed this patient's vital signs. HEENT: Noncontributory. LUNGS: Clear to auscultation. HEART: Regular rhythm. ABDOMEN: Protuberant, soft. No tenderness elicited. LABORATORY DATA: Provisional laboratory data indicates as of yesterday morning normal bilirubin, AST and ALT ratio of 64/230, significantly decreased relative to day of admission. ASSESSMENT AND PLAN: This is a 28-year-old white challenged male with history of multiple episodes of biliary colic probably secondary to gallstone pancreatitis. The patient is pending a cholecystectomy today by Dr. Jo's group earlier on this morning. Note that the patient requested nutrition input before he leaves the hospital. Manjinder Manjarrez DO, PhD MRAGARET
[2019-01-10] MEDS ORDERED: Propofol 10 mg/ml Inj (20 ML) ONE (10:01)
[2019-01-10] MEDS ORDERED: Midazolam 2 MG/2 ML VIAL ONE (10:02)
[2019-01-10] MEDS ORDERED: Lidocaine PF 2% (5 ml) Inj (For Cardiac Arrhy) ONE ×2 (10:03→12:29)
[2019-01-10] MEDS ORDERED: Glycopyrrolate 0.2 mg/ml (2ml vial) ONE ×2 (10:03→12:23)
[2019-01-10] MEDS ORDERED: Rocuronium 10 mg/ml (5 ml) ONE ×2 (10:03→11:29)
[2019-01-10] MEDS ORDERED: Succinylcholine 200 mg/10 ml Inj IV ONE (10:03)
[2019-01-10] MEDS ORDERED: Sevoflurane - Inhalation Anesthetic Liq (250 ml) ONE (10:11)
[2019-01-10] MEDS ORDERED: ePHEDrine 50 mg/ml Inj ONE (10:30)
[2019-01-10] MEDS ORDERED: CeFAZolin 1 gm in NS 100ml IVPB ONE (10:41)
[2019-01-10] MEDS ORDERED: Neostigmine Methylsulfate 3mg/3ml Syringe IV ONE (12:23)
[2019-01-10] MEDS ORDERED: Lactated Ringer's 1,000 ML IV SCH (12:45)
[2019-01-10] MEDS ORDERED: Oxycodone/Acetaminophen 10/325 mg Tab PO PRN (13:02)
--- NOTE | 2019-01-10 13:02 | PCM.SURG1 ---
Surgeon's Initial Post Op Note - Surgeon's Notes Surgeon: Dr. Jo Celery Stripper: Dr. Pichardo PGY3, Dr. Mclain PGY4 Type of Anesthesia: General Endo Pre-Operative Diagnosis: gallstone pancreatitis Operative Findings: same Post-Operative Diagnosis: same Operation Performed: laparoscopic cholecystectomy with IOC Specimen/Specimens Removed: gallbladder Estimated Blood Loss: EBL {In ML}: 30 Blood Products Given: N/A Drains Used: No Drains Post-Op Condition: Good Date of Surgery/Procedure: 01/10/19 Time of Surgery/Procedure: 13:02
[2019-01-10] MEDS ORDERED: HYDROmorphone 1 mg/ml ISec IVP PRN (13:04)
--- NOTE | 2019-01-10 13:19 | RAD ---
Date of service: 01/10/2019 PROCEDURE: Operative cholangiogram HISTORY: R/O OBSTRUCTION COMPARISON: TECHNIQUE: 8.9 sec of fluoro time cumulative dose 4.28 mGy. Two images were submitted FINDINGS: There is a large stone in the distal aspect of the common duct. Contrast flows into the duodenum. IMPRESSION: As above
[2019-01-10] MEDS: HYDROmorphone 0.5 mg/0.5 ml ISec IVP PRN ×2 (13:40→13:55)
[2019-01-10] MEDS ORDERED: HYDROmorphone 0.5 mg/0.5 ml ISec ONE ×2 (13:41→14:01)
[2019-01-10] MEDS: guaiFENesin-DM 600-30 mg ER Tab PO SCH ×2 (17:28→17:39)
[2019-01-10] MEDS: Dextrose 5%/0.45% NS 1,000 ML IV SCH (19:01)
--- NOTE | 2019-01-10 22:10 | CP.PCM.PN ---
<Ariel Sommer - Last Filed: 01/10/19 22:05> Subjective - Date & Time of Evaluation Date of Evaluation: 01/10/19 Time of Evaluation: 10:00 - Subjective Subjective: Arile Sommer DO PGY1 - Internal Medicine Medical Dir - Hospitalist Progress Note Pt. seen and examined this AM at bedside prior to OR. Pt. NPO Overnight; no complaints of abdominal pain, n/v/d/c, fevers/chills. Objective - Vital Signs/Intake and Output Vital Signs (last 24 hours): Temp Pulse Resp BP Pulse Ox 98.8 F 68 20 123/79 98 01/10/19 21:28 01/10/19 21:28 01/10/19 21:28 01/10/19 21:28 01/10/19 21:28 Intake and Output: 01/10/19 01/11/19 18:59 06:59 Intake Total 0 Output Total 1 Balance -1 - Medications Medications: Current Medications Enoxaparin Sodium (Lovenox) 40 mg SC DAILY [facility]; Protocol Guaifenesin/Dextromethorphan (Mucinex-Dm 600-30 Mg) 1 tab PO BID [facility] Last Admin: 01/10/19 17:39 Dose: 1 tab Dextrose/Sodium Chloride (Dextrose 5%/0.45% Ns 1000 Ml) 1,000 mls @ 125 mls/hr IV .Q8H [facility] Last Admin: 01/10/19 19:01 Dose: 125 mls/hr Morphine Sulfate (Morphine) 2 mg IVP Q2H PRN PRN Reason: abdominal pain Ondansetron HCl (Zofran Inj) 4 mg IVP Q6H PRN PRN Reason: Nausea/Vomiting Last Admin: 01/10/19 21:24 Dose: 4 mg Oxycodone/Acetaminophen (Percocet 10/325 Mg Tab) 1 tab PO Q4H PRN PRN Reason: Pain, moderate (4-7) Pantoprazole Sodium (Protonix Inj) 40 mg IVP DAILY [facility] Last Admin: 01/10/19 17:28 Dose: Not Given - Labs Labs: 01/10/19 07:20 01/10/19 07:20 PT 14.6 SECONDS (9.4-12.5) H 01/10/19 07:20 INR 1.29 01/10/19 07:20 APTT 40.5 Seconds (26.9-38.3) H 01/10/19 07:20 - Constitutional Appears: Well - Head Exam Head Exam: ATRAUMATIC, NORMOCEPHALIC - Eye Exam Eye Exam: EOMI, Normal appearance, PERRL. absent: Scleral icterus - Cardiovascular Exam Cardiovascular Exam: RRR, +S1, +S2. absent: Murmur - GI/Abdominal Exam GI & Abdominal Exam: Soft. absent: Distended, Guarding, Tenderness, Hyperactive Bowel Sounds, Hypoactive Bowel Sounds - Extremities Exam Extremities Exam: absent: Pedal Edema, Tenderness - Neurological Exam Neurological Exam: Alert, Awake, CN II-XII Intact - Psychiatric Exam Psychiatric exam: Normal Affect, Normal Mood - Skin Skin Exam: Dry, Intact, Warm Assessment and Plan - Assessment and Plan (Free Text) Assessment: 28M w/ no significant pmh presented to [facility] [place]07 w/ c/o of RUQ / Epigastric pain and N/V. Admitted for management and treatment of gallstone pancreatitis. Plan: Gallstone Pancreatitis: Lipase Elevated Abd US: Cholelithiasis - dilatation of CBD w/o evidence of choledocolithiasis; w/o evidence of cholecystitis MRCP unable to be completed due to patient's body habitus ERCP not required at this time as per GI Patient will undergo cholecystectomy w/ intraoperative cholangiogram this morning Further reccs as per surgery Lipid Panel - Mild triglyceride elevation Surgery Following GI Following GI/DVT PPX SCD / Protonix IVP Dispo: Cont management on med/surg; Will observe postoperatively at this time Patient was seen, examined, Discussed w/ attending Dr. Sherry Sommer DO PGY1 - Internal Medicine Medical Dir - Hospitalist Progress Note <Sherry Sommer R - Last Filed: 01/11/19 07:49> Objective - Vital Signs/Intake and Output Vital Signs (last 24 hours): Temp Pulse Resp BP Pulse Ox 98.8 F 68 20 123/79 98 01/10/19 21:28 01/10/19 21:28 01/10/19 21:28 01/10/19 21:28 01/10/19 21:28 - Medications Medications: Current Medications Enoxaparin Sodium (Lovenox) 40 mg SC DAILY [facility]; Protocol Guaifenesin/Dextromethorphan (Mucinex-Dm 600-30 Mg) 1 tab PO BID [facility] Last Admin: 01/10/19 17:39 Dose: 1 tab Dextrose/Sodium Chloride (Dextrose 5%/0.45% Ns 1000 Ml) 1,000 mls @ 125 mls/hr IV .Q8H [facility] Last Admin: 01/11/19 02:31 Dose: 125 mls/hr Morphine Sulfate (Morphine) 2 mg IVP Q2H PRN PRN Reason: abdominal pain Last Admin: 01/11/19 01:48 Dose: 2 mg Ondansetron HCl (Zofran Inj) 4 mg IVP Q6H PRN PRN Reason: Nausea/Vomiting Last Admin: 01/10/19 21:24 Dose: 4 mg Oxycodone/Acetaminophen (Percocet 10/325 Mg Tab) 1 tab PO Q4H PRN PRN Reason: Pain, moderate (4-7) Pantoprazole Sodium (Protonix Inj) 40 mg IVP DAILY [facility] Last Admin: 01/10/19 17:28 Dose: Not Given - Labs Labs: 01/10/19 07:20 01/10/19 07:20 PT 14.6 SECONDS (9.4-12.5) H 01/10/19 07:20 INR 1.29 01/10/19 07:20 APTT 40.5 Seconds (26.9-38.3) H 01/10/19 07:20 Attending/Attestation - Attestation I have personally seen and examined this patient.: Yes I have fully participated in the care of the patient.: Yes I have reviewed all pertinent clinical information, including history, physical exam and plan: Yes Notes (Text): Patient seen and examined by me with resident at approximately 2:15PM on 01/10/19. Case including HPI, physical exam, and assessment and plan discussed with resident. Agree with above with following additions/corrections. Patient is 28-year-old male with no significant past medical history that presented to the emergency room with abdominal pain. Patient seen in the PACU. Patient s/p cholecystectomy. Patient complains of abdominal pain. States the right side of his abdomen feels "tight." Pain medications are helping. No nausea or vomiting. No fevers or chills. No chest pain or shortness of breath. No headaches or dizziness. No diarrhea or constipation. No dysuria. Physical exam: General: Awake and alert lying in bed in no acute distress. HEENT: Normocephalic, atraumatic. Extraocular muscles intact, pupils equal and reactive, no scleral icterus. Oropharynx is pink and moist. No pharyngeal erythema or exudate appreciated. Neck is supple. Cardiovascular: Normal rhythm. Normal S1 and S2. No murmurs, rubs, or gallops appreciated Pulmonary: Normal respiratory effort. No rhonchi, rales, or wheezing appreciated. Gastrointestinal: Soft. Distended. Positive generalized tenderness . Hypoactive bowel sounds all 4 quadrants. No guarding. Incision sited clean,dry, and intact. Morbidly obese abdomen. Musculoskeletal: Moves all extremities. No calf tenderness. No edema appreciated. Central nervous system: AAOx3. Dermatologic: Skin warm and dry. Assessment and plan: Patient is 28-year-old male with no significant past medical history that presented to the emergency room with abdominal pain. 1. Upper abdominal pain secondary to gallstone pancreatitis. Lipase 24,648 on admission. S/P laparoscopic cholecystectomy with intraoperative cholangiogram. Continue with pain management. Monitor bowel function. Abdominal ultrasound per radiologist showed cholelithiasis, moderate diffuse dilatation of the common bile duct without sonographic evidence for choledocholithiasis, examination is limited due to patient body habitus and bowel gas, correlation with MRCP is recommended; enlarged fatty liver; pancreas is obscured by bowel gas. GI recommendations appreciated. Surgical team recommendations appreciated. 2. Transaminitis. Improving. May have passed a stone. Continue to monitor. 3. Morbid obesity. Diet and exercise discussed with patient. Case was discussed in detail with the patient regarding current diagnosis and treatment plan. All questions answered.
[2019-01-10] MEDS: Morphine 2 mg/ml ISec IVP PRN (22:31)
[2019-01-11] MEDS: Morphine 2 mg/ml ISec IVP PRN ×3 (01:48→21:55)
[2019-01-11] MEDS: Dextrose 5%/0.45% NS 1,000 ML IV SCH (02:31)
[2019-01-11] MEDS ORDERED: Oxycodone/Acetaminophen 5/325 mg Tab PO PRN (08:05)
--- NOTE | 2019-01-11 08:09 | CP.PCM.PN ---
Subjective - Date & Time of Evaluation Date of Evaluation: 01/11/19 Time of Evaluation: 08:06 - Subjective Subjective: General Surgery: Dr Jo Pt S&E. POD#1 s/p lap yuniel. Cholecystectomy was a difficult one given pt's body habitus and an inflammed edematous gall bladder with a large amount of small 1-3mm stones. Post-operatively pt has not yet tolerated PO intake. Had 2 episodes of emesis s/p dilaudid administration, alleviated by zofran. Still has transient nausea. OOB to chair however, using incentive spirometry, voiding independently. Denies any fevers, chills, sob, chest pain. Reports surgical site tenderness. Objective - Vital Signs/Intake and Output Vital Signs (last 24 hours): Temp Pulse Resp BP Pulse Ox 98.8 F 68 20 123/79 98 01/10/19 21:28 01/10/19 21:28 01/10/19 21:28 01/10/19 21:28 01/10/19 21:28 - Medications Medications: Current Medications Enoxaparin Sodium (Lovenox) 40 mg SC DAILY [facility]; Protocol Guaifenesin/Dextromethorphan (Mucinex-Dm 600-30 Mg) 1 tab PO BID [facility] Last Admin: 01/10/19 17:39 Dose: 1 tab Dextrose/Sodium Chloride (Dextrose 5%/0.45% Ns 1000 Ml) 1,000 mls @ 125 mls/hr IV .Q8H [facility] Last Admin: 01/11/19 02:31 Dose: 125 mls/hr Morphine Sulfate (Morphine) 2 mg IVP Q2H PRN PRN Reason: abdominal pain Last Admin: 01/11/19 01:48 Dose: 2 mg Ondansetron HCl (Zofran Inj) 4 mg IVP Q6H PRN PRN Reason: Nausea/Vomiting Last Admin: 01/10/19 21:24 Dose: 4 mg Oxycodone/Acetaminophen (Percocet 10/325 Mg Tab) 1 tab PO Q4H PRN PRN Reason: Pain, moderate (4-7) Pantoprazole Sodium (Protonix Inj) 40 mg IVP DAILY [facility] Last Admin: 01/10/19 17:28 Dose: Not Given - Labs Labs: 01/10/19 07:20 01/10/19 07:20 PT 14.6 SECONDS (9.4-12.5) H 01/10/19 07:20 INR 1.29 01/10/19 07:20 APTT 40.5 Seconds (26.9-38.3) H 01/10/19 07:20 - Constitutional Appears: Non-toxic, No Acute Distress - Head Exam Head Exam: NORMOCEPHALIC - Eye Exam Eye Exam: absent: Scleral icterus - ENT Exam ENT Exam: Mucous Membranes Dry - Respiratory Exam Respiratory Exam: absent: Respiratory Distress - Cardiovascular Exam Cardiovascular Exam: REGULAR RHYTHM. absent: Tachycardia - GI/Abdominal Exam GI & Abdominal Exam: Soft, Tenderness (post-op and appropriate). absent: Distended, Hernia, Rebound Additional comments: surgical sites c/d/i - Neurological Exam Neurological Exam: Alert, Awake, Oriented x3 Assessment and Plan - Assessment and Plan (Free Text) Assessment: 28M POD1 s/p lap yuniel Plan: cont CLD and adv as tolerate ok to d/c fluids once tolerating d/c dilaudid, switched to morphine, ok for percocet once tolerates PO will need ursodiol x 6 months upon d/c d/w Dr Sandro Mclain, PGY4
--- NOTE | 2019-01-11 09:54 | CP.PCM.PN ---
<Ariel Sommer - Last Filed: 01/11/19 14:54> Subjective - Date & Time of Evaluation Date of Evaluation: 01/11/19 Time of Evaluation: 13:33 - Subjective Subjective: Ariel Sommer DO PGY1 - Internal Medicine Methods Engineer - Hospitalist Progress Note Pt. was seen and evaluated at bedside this morning; Patient reported N/V after being given pain rx; Patient complains of mild abd tenderness; observed tolerating diet w/o N/v No fevers or chills overnight; no sob; patient has not passed flatus/ had BM at this time. Objective - Vital Signs/Intake and Output Vital Signs (last 24 hours): Temp Pulse Resp BP Pulse Ox 98.6 F 72 20 101/69 94 L 01/11/19 06:00 01/11/19 06:00 01/11/19 06:00 01/11/19 06:00 01/11/19 06:00 - Medications Medications: Current Medications Enoxaparin Sodium (Lovenox) 40 mg SC DAILY [facility]; Protocol Guaifenesin/Dextromethorphan (Mucinex-Dm 600-30 Mg) 1 tab PO BID [facility] Last Admin: 01/10/19 17:39 Dose: 1 tab Dextrose/Sodium Chloride (Dextrose 5%/0.45% Ns 1000 Ml) 1,000 mls @ 125 mls/hr IV .Q8H [facility] Last Admin: 01/11/19 02:31 Dose: 125 mls/hr Morphine Sulfate (Morphine) 2 mg IVP Q2H PRN PRN Reason: abdominal pain Last Admin: 01/11/19 01:48 Dose: 2 mg Ondansetron HCl (Zofran Inj) 4 mg IVP Q6H PRN PRN Reason: Nausea/Vomiting Last Admin: 01/10/19 21:24 Dose: 4 mg Oxycodone/Acetaminophen (Percocet 10/325 Mg Tab) 1 tab PO Q4H PRN PRN Reason: Pain, moderate (4-7) Oxycodone/Acetaminophen (Percocet 5/325 Mg Tab) 1 tab PO Q4H PRN PRN Reason: Pain, Mild (1-3) Stop: 01/14/19 08:06 Pantoprazole Sodium (Protonix Inj) 40 mg IVP DAILY [facility] Last Admin: 01/10/19 17:28 Dose: Not Given - Labs Labs: 01/10/19 07:20 01/10/19 07:20 PT 14.6 SECONDS (9.4-12.5) H 01/10/19 07:20 INR 1.29 01/10/19 07:20 APTT 40.5 Seconds (26.9-38.3) H 01/10/19 07:20 - Constitutional Appears: Well - Head Exam Head Exam: ATRAUMATIC, NORMOCEPHALIC - Eye Exam Eye Exam: EOMI, Normal appearance, PERRL. absent: Scleral icterus - Cardiovascular Exam Cardiovascular Exam: RRR, +S1, +S2. absent: Murmur - GI/Abdominal Exam GI & Abdominal Exam: Soft. absent: Distended, Guarding, Tenderness, Hyperactive Bowel Sounds, Hypoactive Bowel Sounds - Extremities Exam Extremities Exam: absent: Pedal Edema, Tenderness - Neurological Exam Neurological Exam: Alert, Awake, CN II-XII Intact - Psychiatric Exam Psychiatric exam: Normal Affect, Normal Mood - Skin Skin Exam: Dry, Intact, Warm Assessment and Plan (1) Acute gallstone pancreatitis Assessment & Plan: Patient is status post cholecystectomy w/ intraoperative cholangiogram - POD#1 Complaints of abd pain, N/v w/ elevated lipase on presentation Abd US: Cholelithiasis - dilatation of CBD w/o evidence of choledocolithiasis; w/o evidence of cholecystitis Did not undergo MRCP 2/2 body habitus; No ERCP needed as per GI Will require ursodiol x6mo as per surgery Further reccs as per surgery Lipid Panel - Mild triglyceride elevation Surgery Following GI Following Current Analgesia oxyCODONE/Acetaminophen [Percocet 5/325 mg Tab] 1 tab PO Q4H PRN - mild Acetaminophen/Oxycodone Hydr [Percocet 10/325 mg Tab] 1 tab PO Q4H PRN - moderate Morphine 2 mg IVP Q2H PRN - severe Status: Acute - Assessment and Plan (Free Text) Assessment: 28M w/ no significant pmh [place] [facility] [place] w/ c/o of RUQ / Epigastric pain and N/V. Admitted for management and treatment of gallstone pancreatitis; s/p lap yuniel 01/10 Plan as above; GI/DVT PPX SCD / Protonix IVP Dispo: Cont management on med/surg; Will monitor postoperatively at this time Patient was seen, examined, Discussed w/ attending Dr. Sherry Sommer DO PGY1 - Internal Medicine Methods Engineer - Hospitalist Progress Note <Sherry Sommer R - Last Filed: 01/11/19 18:52> Objective - Vital Signs/Intake and Output Vital Signs (last 24 hours): Temp Pulse Resp BP Pulse Ox 98.1 F 70 18 129/83 94 L 01/11/19 14:00 01/11/19 14:00 01/11/19 14:00 01/11/19 14:00 01/11/19 14:00 - Medications Medications: Current Medications Enoxaparin Sodium (Lovenox) 40 mg SC DAILY [facility]; Protocol Last Admin: 01/11/19 10:05 Dose: Not Given Guaifenesin/Dextromethorphan (Mucinex-Dm 600-30 Mg) 1 tab PO BID [facility] Last Admin: 01/11/19 17:48 Dose: Not Given Morphine Sulfate (Morphine) 2 mg IVP Q2H PRN PRN Reason: abdominal pain Last Admin: 01/11/19 09:58 Dose: 2 mg Ondansetron HCl (Zofran Inj) 4 mg IVP Q6H PRN PRN Reason: Nausea/Vomiting Last Admin: 01/10/19 21:24 Dose: 4 mg Oxycodone/Acetaminophen (Percocet 10/325 Mg Tab) 1 tab PO Q4H PRN PRN Reason: Pain, moderate (4-7) Oxycodone/Acetaminophen (Percocet 5/325 Mg Tab) 1 tab PO Q4H PRN PRN Reason: Pain, Mild (1-3) Stop: 01/14/19 08:06 Pantoprazole Sodium (Protonix Inj) 40 mg IVP DAILY [facility] Last Admin: 01/11/19 09:57 Dose: 40 mg Sodium Chloride ([place] Nasal [place]) 0 ml NS Q3 PRN PRN Reason: Nasal congestion Last Admin: 01/11/19 16:28 Dose: 1 spr - Labs Labs: 01/11/19 09:30 01/11/19 09:30 PT 14.6 SECONDS (9.4-12.5) H 01/10/19 07:20 INR 1.29 01/10/19 07:20 APTT 40.5 Seconds (26.9-38.3) H 01/10/19 07:20 Attending/Attestation - Attestation I have personally seen and examined this patient.: Yes I have fully participated in the care of the patient.: Yes I have reviewed all pertinent clinical information, including history, physical exam and plan: Yes Notes (Text): Patient seen and examined by me with resident at approximately 9:55AM on 01/11/19. Case including HPI, physical exam, and assessment and plan discussed with resident. Agree with above with following additions/corrections. Patient is 28-year-old male with no significant past medical history that presented to the emergency room with abdominal pain. Patient states he is feeling ok. Complains of generalized abdominal pain. States he had nausea and vomiting last night but has resolved today. Patient is tolerating diet. Denies flatus or bowel movement but states he has been "burping a lot." No fevers or chills. No chest pain or shortness of breath. No headaches or dizziness. No dysuria. Physical exam: General: Awake and alert lying in bed in no acute distress. HEENT: Normocephalic, atraumatic. Extraocular muscles intact, pupils equal and reactive, no scleral icterus. Oropharynx is pink and moist. No pharyngeal erythema or exudate appreciated. Neck is supple. Cardiovascular: Normal rhythm. Normal S1 and S2. No murmurs, rubs, or gallops appreciated Pulmonary: Normal respiratory effort. No rhonchi, rales, or wheezing appreciated. Gastrointestinal: Soft. Distended. Positive generalized tenderness . Hypoactive bowel sounds all 4 quadrants. No guarding. Incision sites clean,dry, and intact. Morbidly obese abdomen. Musculoskeletal: Moves all extremities. No calf tenderness. No edema appreciated. Central nervous system: AAOx3. Dermatologic: Skin warm and dry. Assessment and plan: Patient is 28-year-old male with no significant past medical history that presented to the emergency room with abdominal pain. 1. Upper abdominal pain secondary to gallstone pancreatitis. Lipase 24,648 on admission. S/P laparoscopic cholecystectomy with intraoperative cholangiogram. Continue with pain management. Continue to monitor for bowel function. Patient will need to go on 6 months of ursodiol. Abdominal ultrasound per radiologist showed cholelithiasis, moderate diffuse dilatation of the common bile duct wit hout sonographic evidence for choledocholithiasis, examination is limited due to patient body habitus and bowel gas, correlation with MRCP is recommended; enlarged fatty liver; pancreas is obscured by bowel gas. GI recommendations appreciated. Surgical team recommendations appreciated. 2. Transaminitis. Improving. Continue to monitor. 3. Morbid obesity. Diet and exercise discussed with patient. Case was discussed in detail with the patient regarding current diagnosis and treatment plan. All questions answered.
[2019-01-11] MEDS: guaiFENesin-DM 600-30 mg ER Tab PO SCH ×4 (09:57→17:48)
[2019-01-11] MEDS: Enoxaparin 40 mg Syringe SC SCH ×2 (09:58→10:05)
[2019-01-11 10:05] LABS: ALB/GLOB RATIO 1.2 (1.1-1.8); ALBUMIN 4.2 g/dL (3.0-4.8); ALT/SGPT 212 U/L (7-56); AST/SGOT 89 U/L (17-59); BLOOD UREA NITROGEN 4 mg/dL (7-21); CALCIUM 9.1 mg/dL (8.4-10.5); GFR NON-AFRICAN AMERICAN > 60
[2019-01-11 10:17] LABS: BASO # 0.02 K/mm3 (0.0-2.0); BASO % 0.2 % (0.0-3.0); EOS % 0.3 % (1.5-5.0); HEMOGLOBIN 12.9 g/dL (14.0-18.0); LYMPH # 2.1 (1.2-3.4); LYMPH % 23.2 % (22.0-35.0); MEAN CELL VOLUME 82.9 fl (80.0-105.0); MEAN CORPUSCULAR HEMOGLOBIN 27.6 pg (25.0-35.0); MEAN CORPUSCULAR HGB CONC 33.3 g/dl (31.0-37.0); MEAN PLATELET VOLUME 9.1 fl (7.0-11.0); MONO # 0.5 (0.1-0.6); MONO % 5.7 % (1.0-6.0); RBC 4.67 10^6/uL (3.5-6.1); RED CELL DISTRIBUTION WIDTH 15.1 % (11.5-14.5); WHITE BLOOD COUNT 9.2 10^3/uL (4.5-11.0)
[2019-01-11 15:46] VITALS: RESP 18
[2019-01-12 07:27] LABS: BASO # 0.02 K/mm3 (0.0-2.0); BASO % 0.2 % (0.0-3.0); EOS # 0.1 (0.0-0.7); EOS % 1.2 % (1.5-5.0); HEMOGLOBIN 12.5 g/dL (14.0-18.0); LYMPH # 2.4 (1.2-3.4); LYMPH % 29.4 % (22.0-35.0); MEAN CELL VOLUME 83.4 fl (80.0-105.0); MEAN CORPUSCULAR HEMOGLOBIN 28.1 pg (25.0-35.0); MEAN CORPUSCULAR HGB CONC 33.7 g/dl (31.0-37.0); MEAN PLATELET VOLUME 9.1 fl (7.0-11.0); MONO # 0.7 (0.1-0.6); MONO % 8.3 % (1.0-6.0); RBC 4.45 10^6/uL (3.5-6.1); WHITE BLOOD COUNT 8.1 10^3/uL (4.5-11.0)
[2019-01-12 08:00] LABS: ALBUMIN 3.6 g/dL (3.0-4.8); ALT/SGPT 145 U/L (7-56); AST/SGOT 53 U/L (17-59); BLOOD UREA NITROGEN 6 mg/dL (7-21); GFR NON-AFRICAN AMERICAN > 60
[2019-01-12 08:08] VITALS: BP 118/80; PULSE 82; TEMP 98; O2SAT 96
--- NOTE | 2019-01-12 09:29 | CP.PCM.PN ---
Subjective - Date & Time of Evaluation Date of Evaluation: 01/12/19 Time of Evaluation: :31 - Subjective Subjective: Patient seen and examined. No acute events over night. Tolerating diet and ambulating. Skin incision sites clear dry and intact. Objective - Vital Signs/Intake and Output Vital Signs (last 24 hours): Temp Pulse Resp BP Pulse Ox 98 F 82 18 118/80 96 01/12/19 06:00 01/12/19 06:00 01/12/19 06:00 01/12/19 06:00 01/12/19 06:00 Intake and Output: 01/12/19 01/12/19 06:59 18:59 Intake Total 580 Output Total 300 Balance 280 - Medications Medications: Current Medications Enoxaparin Sodium (Lovenox) 40 mg SC DAILY [facility]; Protocol Last Admin: 01/11/19 10:05 Dose: Not Given Guaifenesin/Dextromethorphan (Mucinex-Dm 600-30 Mg) 1 tab PO BID [facility] Last Admin: 01/11/19 17:48 Dose: Not Given Morphine Sulfate (Morphine) 2 mg IVP Q2H PRN PRN Reason: abdominal pain Last Admin: 01/11/19 21:55 Dose: 2 mg Ondansetron HCl (Zofran Inj) 4 mg IVP Q6H PRN PRN Reason: Nausea/Vomiting Last Admin: 01/10/19 21:24 Dose: 4 mg Oxycodone/Acetaminophen (Percocet 10/325 Mg Tab) 1 tab PO Q4H PRN PRN Reason: Pain, moderate (4-7) Oxycodone/Acetaminophen (Percocet 5/325 Mg Tab) 1 tab PO Q4H PRN PRN Reason: Pain, Mild (1-3) Stop: 01/14/19 08:06 Pantoprazole Sodium (Protonix Inj) 40 mg IVP DAILY [facility] Last Admin: 01/11/19 09:57 Dose: 40 mg Sodium Chloride ([place] Nasal [place]) 0 ml NS Q3 PRN PRN Reason: Nasal congestion Last Admin: 01/11/19 23:24 Dose: 1 spr - Labs Labs: 01/12/19 06:30 01/12/19 06:30 PT 14.6 SECONDS (9.4-12.5) H 01/10/19 07:20 INR 1.29 01/10/19 07:20 APTT 40.5 Seconds (26.9-38.3) H 01/10/19 07:20 - Constitutional Appears: No Acute Distress - Head Exam Head Exam: NORMOCEPHALIC - Eye Exam Eye Exam: EOMI, Normal appearance - ENT Exam ENT Exam: Mucous Membranes Moist - Respiratory Exam Respiratory Exam: NORMAL BREATHING PATTERN - Cardiovascular Exam Cardiovascular Exam: +S1, +S2 - GI/Abdominal Exam GI & Abdominal Exam: Soft - Neurological Exam Neurological Exam: Alert, Awake, Oriented x3 - Psychiatric Exam Psychiatric exam: Normal Mood - Skin Skin Exam: Dry, Intact, Warm Assessment and Plan - Assessment and Plan (Free Text) Assessment: 28M POD2 s/p lap yuniel Plan: Patient clear for d/c from surgical standpoint Ursodiol [id number] Avoid heavy lifting x4-6weeks follow up with Dr. Jo in 1 week d/w Dr Sandro Jaffe PGY3
[2019-01-12] MEDS: Enoxaparin 40 mg Syringe SC SCH (11:05)
[2019-01-12] MEDS: guaiFENesin-DM 600-30 mg ER Tab PO SCH (11:06)
--- NOTE | 2019-01-12 11:23 | CP.PCM.DIS ---
<Ariel Sommer - Last Filed: 01/12/19 22:30> Provider - Provider Date of Admission: 01/07/19 12:58 Attending physician: Sherry Sommer DO Primary care physician: Jarocho Onofre Jr, MD Consults: 01/07/19 12:36 General Surgery Consult Stat Comment: Consulting Provider: Rk Jo Consulting Physician: Rk Jo Reason for Consult: Cholelithiasis, Elevated LFTs 01/07/19 13:49 Gastroenterology Consult Routine Comment: Consulting Provider: Manjinder Manjarrez Consulting Physician: Manjinder Manjarrez Reason for Consult: Pancreatitis Time Spent in preparation of Discharge (in minutes): 45 Diagnosis - Discharge Diagnosis (1) Acute gallstone pancreatitis Status: Acute Priority: High Hospital Course - Lab Results Lab Results: Micro Results 01/10/19 14:30 Bile Gram Stain - Final 01/10/19 14:30 Bile Body Fluid Culture - Preliminary NO GROWTH AFTER 2 DAYS 01/07/19 18:00 Blood Blood Culture - Preliminary NO GROWTH AFTER 4 DAYS 01/07/19 11:10 Urine,Clean Catch Urine Culture - Final 50-100,000 CFU/ML. MULTIPLE SPECIES. SUGGEST REPEAT SPECIMEN. Most Recent Lab Values WBC 8.1 10^3/uL (4.5-11.0) 01/12/19 06:30 RBC 4.45 10^6/uL (3.5-6.1) 01/12/19 06:30 Hgb 12.5 g/dL (14.0-18.0) L 01/12/19 06:30 Hct 37.1 % (42.0-52.0) L 01/12/19 06:30 MCV 83.4 fl (80.0-105.0) 01/12/19 06:30 MCH 28.1 pg (25.0-35.0) 01/12/19 06:30 MCHC 33.7 g/dl (31.0-37.0) 01/12/19 06:30 RDW 15.0 % (11.5-14.5) H 01/12/19 06:30 Plt Count 273 10^3/uL (120.0-450.0) 01/12/19 06:30 MPV 9.1 fl (7.0-11.0) 01/12/19 06:30 Neut % (Auto) 60.9 % (50.0-68.0) 01/12/19 06:30 Lymph % (Auto) 29.4 % (22.0-35.0) 01/12/19 06:30 Brooks % (Auto) 8.3 % (1.0-6.0) H 01/12/19 06:30 Eos % (Auto) 1.2 % (1.5-5.0) L 01/12/19 06:30 Baso % (Auto) 0.2 % (0.0-3.0) 01/12/19 06:30 Lymph # (Auto) 2.4 (1.2-3.4) 01/12/19 06:30 Brooks # (Auto) 0.7 (0.1-0.6) H 01/12/19 06:30 Eos # (Auto) 0.1 (0.0-0.7) 01/12/19 06:30 Baso # (Auto) 0.02 K/mm3 (0.0-2.0) 01/12/19 06:30 Absolute Neuts (auto) 4.93 (1.4-6.5) 01/12/19 06:30 PT 14.6 SECONDS (9.4-12.5) H 01/10/19 07:20 INR 1.29 01/10/19 07:20 APTT 40.5 Seconds (26.9-38.3) H 01/10/19 07:20 Sodium 138 mmol/L (132-148) 01/12/19 06:30 Potassium 3.8 mmol/L (3.6-5.0) 01/12/19 06:30 Chloride 102 mmol/L (98-107) 01/12/19 06:30 Carbon Dioxide 28 mmol/L (21-33) 01/12/19 06:30 Anion Gap 13 (10-20) 01/12/19 06:30 BUN 6 mg/dL (7-21) L 01/12/19 06:30 Creatinine 0.5 mg/dl (0.8-1.5) L 01/12/19 06:30 Est GFR ( Amer) > 60 01/12/19 06:30 Est GFR (Non-Af Amer) > 60 01/12/19 06:30 Random Glucose 92 mg/dL (70-110) 01/12/19 06:30 Hemoglobin A1c 5.2 % (4.2-6.5) 01/07/19 11:20 Calcium 9.0 mg/dL (8.4-10.5) 01/12/19 06:30 Magnesium 2.2 mg/dL (1.7-2.2) 01/07/19 11:20 Total Bilirubin 0.6 mg/dL (0.2-1.3) 01/12/19 06:30 AST 53 U/L (17-59) 01/12/19 06:30 ALT 145 U/L (7-56) H 01/12/19 06:30 Alkaline Phosphatase 88 U/L (38-126) 01/12/19 06:30 Total Protein 7.3 g/dL (5.8-8.3) 01/12/19 06:30 Albumin 3.6 g/dL (3.0-4.8) 01/12/19 06:30 Globulin 3.7 gm/dL 01/12/19 06:30 Albumin/Globulin Ratio 1.0 (1.1-1.8) L 01/12/19 06:30 Triglycerides 163 mg/dL (35-160) H 01/07/19 11:20 Cholesterol 175 mg/dL (130-200) 01/07/19 11:20 LDL Cholesterol Direct 103 mg/dL (0-129) 01/07/19 11:20 HDL Cholesterol 37 mg/dL (29-60) 01/07/19 11:20 Lipase 22209 U/L (23-300) H 01/07/19 11:20 Urine Color Yellow (YELLOW) 01/07/19 11:10 Urine Appearance Clear (CLEAR) 01/07/19 11:10 Urine pH 7.5 (4.7-8.0) 01/07/19 11:10 Ur Specific [place] 1.010 (1.005-1.035) 01/07/19 11:10 Urine Protein Negative mg/dL (<30 mg/dL) 01/07/19 11:10 Urine Glucose (UA) Negative mg/dL (NEGATIVE) 01/07/19 11:10 Urine Ketones Negative mg/dL (NEGATIVE) 01/07/19 11:10 Urine Blood Trace-lysed (NEGATIVE) H 01/07/19 11:10 Urine Nitrate Negative (NEGATIVE) 01/07/19 11:10 Urine Bilirubin Negative (NEGATIVE) 01/07/19 11:10 Urine Urobilinogen 1.0 E.U./dL (<1 E.U./dL) H 01/07/19 11:10 Ur Leukocyte Esterase Negative Chika/uL (NEGATIVE) 01/07/19 11:10 Urine RBC 2 - 5 /hpf (0-2) H 01/07/19 11:10 Urine WBC 0 - 2 /hpf (0-6) 01/07/19 11:10 Ur Epithelial Cells 0 - 2 /hpf (0-5) 01/07/19 11:10 Amorphous Sediment Few /hpf (NONE) 01/07/19 11:10 Urine Bacteria Many /hpf (NONE) 01/07/19 11:10 Coarse Granular Casts Trace /hpf (NONE) 01/07/19 11:10 Urine Other Uyeast /hpf 01/07/19 11:10 Influenza Typ A,B (EIA) Negative for flu a/b (NEGATIVE) 01/07/19 23:40 - Hospital Course Hospital Course: Ariel Sommer DO 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 Admitted for management and treatment of gallstone pancreatitis. Lipase elevated; Abd US showed cholelithiasis w/o CBD dilation, and w/o evidence of cholecystitis. GI consulted who recommended MRCP however Did not undergo MRCP 2/2 body habitus. GI further recommended No ERCP. Surgery was consulted who recommended patient undergo cholecystectomy w/ intraoperative cholangiogram. Patient underwent laproscopic cholecystectomy w/ intraoperative cholangiogram on 01/10. Patient was monitored until POD#2 during which time he developed no fevers/ chills. He was tolerating diet well and reported BM/Flatus. Morning prior to discharge, patient was seen and evaluated at bedside. Patient reported no fevers, chills, sob, cp, urinary retention. He reported flatus and BM prior to discharge. Patient had questions regarding his prescriptions; all questions answered and follow up was explained. Prescriptions were given to patient; informed patient [facility] outpatient pharmacy is closed today and that he would need to fill the rx himself. URSODIOL adverse effects, benefits, reveiwed w/ patient; patient notified of s/s of allergic rxn and told to go to emergency department immediately if s/s of allrg rxn occur. Further follow up instructions as below Patient was seen, evaluated, and discussed w/ attending physician Dr. Sherry Sommer prior to discharge - Date & Time of H&P Date of H&P: 01/12/19 Time of H&P: 09:00 Discharge Exam - Head Exam Head Exam: NORMOCEPHALIC - Eye Exam Eye Exam: EOMI, Normal appearance, PERRL - Respiratory Exam Respiratory Exam: Clear to PA & Lateral, NORMAL BREATHING PATTERN - Cardiovascular Exam Cardiovascular Exam: RRR. absent: Systolic Murmur - GI/Abdominal Exam GI & Abdominal Exam: Normal Bowel Sounds, Tenderness (Surgical Site Tenderness) - Neurological Exam Neurological exam: Alert, CN II-XII Intact, Oriented x3 - Psychiatric Exam Psychiatric exam: Normal Affect, Normal Mood - Skin Skin Exam: Dry, Normal Color, Warm Discharge Plan - Discharge Medications Prescriptions: Ursodiol [Actigall] 300 mg PO BID #60 cap - Follow Up Plan Condition: GOOD Disposition: HOME/ ROUTINE Instructions: Pancreatitis (DC), Diet and Health Additional Instructions: You were admitted for gallstone pancreatitis, during this admission you underwent a surgical procedure to remove your gallbladder. Please follow up with your primary care doctor, Dr. Onofre, within 3-5 days of discharge Please follow up with Dr. Jo (surgeon) within 1 week of discharge Please start taking URSODIOL 300mg twice daily for 6months Avoid heavy lifting for 4-6 weeks Please go to the nearest emergency department if your symptoms return or you experience new concerning symptoms Referrals: Jarocho Onofre Jr., MD [Primary Care Provider] - Rk Jo MD [Staff Provider] - Manjinder Manjarrez DO [Staff Provider] - <Sherry Sommer - Last Filed: 01/13/19 11:56> Provider - Provider Date of Admission: 01/07/19 12:58 Attending physician: Sherry Sommer DO Primary care physician: Jarocho Onofre Jr, MD Consults: 01/07/19 12:36 General Surgery Consult Stat Comment: Consulting Provider: Rk Jo Consulting Physician: Rk Jo Reason for Consult: Cholelithiasis, Elevated LFTs 01/07/19 13:49 Gastroenterology Consult Routine Comment: Consulting Provider: Manjinder Manjarrez Consulting Physician: Manjinder Manjarrez Reason for Consult: Pancreatitis Hospital Course - Lab Results Lab Results: Micro Results 01/10/19 14:30 Bile Gram Stain - Final 01/10/19 14:30 Bile Body Fluid Culture - Preliminary NO GROWTH AFTER 3 DAYS 01/07/19 18:00 Blood Blood Culture - Final NO GROWTH AFTER 5 DAYS 01/07/19 18:00 Blood Gram Stain - Final TEST NOT PERFORMED 01/07/19 11:10 Urine,Clean Catch Urine Culture - Final 50-100,000 CFU/ML. MULTIPLE SPECIES. SUGGEST REPEAT SPECIMEN. Most Recent Lab Values WBC 8.1 10^3/uL (4.5-11.0) 01/12/19 06:30 RBC 4.45 10^6/uL (3.5-6.1) 01/12/19 06:30 Hgb 12.5 g/dL (14.0-18.0) L 01/12/19 06:30 Hct 37.1 % (42.0-52.0) L 01/12/19 06:30 MCV 83.4 fl (80.0-105.0) 01/12/19 06:30 MCH 28.1 pg (25.0-35.0) 01/12/19 06:30 MCHC 33.7 g/dl (31.0-37.0) 01/12/19 06:30 RDW 15.0 % (11.5-14.5) H 01/12/19 06:30 Plt Count 273 10^3/uL (120.0-450.0) 01/12/19 06:30 MPV 9.1 fl (7.0-11.0) 01/12/19 06:30 Neut % (Auto) 60.9 % (50.0-68.0) 01/12/19 06:30 Lymph % (Auto) 29.4 % (22.0-35.0) 01/12/19 06:30 Brooks % (Auto) 8.3 % (1.0-6.0) H 01/12/19 06:30 Eos % (Auto) 1.2 % (1.5-5.0) L 01/12/19 06:30 Baso % (Auto) 0.2 % (0.0-3.0) 01/12/19 06:30 Lymph # (Auto) 2.4 (1.2-3.4) 01/12/19 06:30 Brooks # (Auto) 0.7 (0.1-0.6) H 01/12/19 06:30 Eos # (Auto) 0.1 (0.0-0.7) 01/12/19 06:30 Baso # (Auto) 0.02 K/mm3 (0.0-2.0) 01/12/19 06:30 Absolute Neuts (auto) 4.93 (1.4-6.5) 01/12/19 06:30 PT 14.6 SECONDS (9.4-12.5) H 01/10/19 07:20 INR 1.29 01/10/19 07:20 APTT 40.5 Seconds (26.9-38.3) H 01/10/19 07:20 Sodium 138 mmol/L (132-148) 01/12/19 06:30 Potassium 3.8 mmol/L (3.6-5.0) 01/12/19 06:30 Chloride 102 mmol/L (98-107) 01/12/19 06:30 Carbon Dioxide 28 mmol/L (21-33) 01/12/19 06:30 Anion Gap 13 (10-20) 01/12/19 06:30 BUN 6 mg/dL (7-21) L 01/12/19 06:30 Creatinine 0.5 mg/dl (0.8-1.5) L 01/12/19 06:30 Est GFR ( Amer) > 60 01/12/19 06:30 Est GFR (Non-Af Amer) > 60 01/12/19 06:30 Random Glucose 92 mg/dL (70-110) 01/12/19 06:30 Hemoglobin A1c 5.2 % (4.2-6.5) 01/07/19 11:20 Calcium 9.0 mg/dL (8.4-10.5) 01/12/19 06:30 Magnesium 2.2 mg/dL (1.7-2.2) 01/07/19 11:20 Total Bilirubin 0.6 mg/dL (0.2-1.3) 01/12/19 06:30 AST 53 U/L (17-59) 01/12/19 06:30 ALT 145 U/L (7-56) H 01/12/19 06:30 Alkaline Phosphatase 88 U/L (38-126) 01/12/19 06:30 Total Protein 7.3 g/dL (5.8-8.3) 01/12/19 06:30 Albumin 3.6 g/dL (3.0-4.8) 01/12/19 06:30 Globulin 3.7 gm/dL 01/12/19 06:30 Albumin/Globulin Ratio 1.0 (1.1-1.8) L 01/12/19 06:30 Triglycerides 163 mg/dL (35-160) H 01/07/19 11:20 Cholesterol 175 mg/dL (130-200) 01/07/19 11:20 LDL Cholesterol Direct 103 mg/dL (0-129) 01/07/19 11:20 HDL Cholesterol 37 mg/dL (29-60) 01/07/19 11:20 Lipase 31052 U/L (23-300) H 01/07/19 11:20 Urine Color Yellow (YELLOW) 01/07/19 11:10 Urine Appearance Clear (CLEAR) 01/07/19 11:10 Urine pH 7.5 (4.7-8.0) 01/07/19 11:10 Ur Specific [place] 1.010 (1.005-1.035) 01/07/19 11:10 Urine Protein Negative mg/dL (<30 mg/dL) 01/07/19 11:10 Urine Glucose (UA) Negative mg/dL (NEGATIVE) 01/07/19 11:10 Urine Ketones Negative mg/dL (NEGATIVE) 01/07/19 11:10 Urine Blood Trace-lysed (NEGATIVE) H 01/07/19 11:10 Urine Nitrate Negative (NEGATIVE) 01/07/19 11:10 Urine Bilirubin Negative (NEGATIVE) 01/07/19 11:10 Urine Urobilinogen 1.0 E.U./dL (<1 E.U./dL) H 01/07/19 11:10 Ur Leukocyte Esterase Negative Chika/uL (NEGATIVE) 01/07/19 11:10 Urine RBC 2 - 5 /hpf (0-2) H 01/07/19 11:10 Urine WBC 0 - 2 /hpf (0-6) 01/07/19 11:10 Ur Epithelial Cells 0 - 2 /hpf (0-5) 01/07/19 11:10 Amorphous Sediment Few /hpf (NONE) 01/07/19 11:10 Urine Bacteria Many /hpf (NONE) 01/07/19 11:10 Coarse Granular Casts Trace /hpf (NONE) 01/07/19 11:10 Urine Other Uyeast /hpf 01/07/19 11:10 Influenza Typ A,B (EIA) Negative for flu a/b (NEGATIVE) 01/07/19 23:40 Attending/Attestation - Attestation I have personally seen and examined this patient.: Yes I have fully participated in the care of the patient.: Yes I have reviewed all pertinent clinical information, including history, physical exam and plan: Yes Notes (Text): Please note this DC summary is for 01/12/19 Patient seen and examined by me with resident at approximately 9:35AM. Case including discharge plan discussed with resident. Agree with above with following additions/corrections. Patient is 28-year-old male with no significant past medical history that presented to the emergency room with abdominal pain. Please see H&P for full details. Patient was found to have or abdominal pain secondary to gallstone pancreatitis, transaminitis, and morbid obesity. Lipase on admission was 24,648. Patient was placed on IV fluids and made NPO. Abdominal ultrasound per radiologist showed cholelithiasis, moderate diffuse dilatation of the common bile duct without sonographic evidence for choledocholithiasis, examination is limited due to patient body habitus and bowel gas, correlation with MRCP is recommended; enlarged fatty liver; pancreas is obscured by bowel gas. MRCP was ordered however patient unable to have testing done secondary to body habitus. Patient was seen by dry box tender and surgical team. Nausea, vomiting, and pain improved following day. He was placed on clear liquid diet and tolerated well. Patient had laparoscopic cholecystectomy with intraoperative cholangiogram on . Cholangiogram showed a large stone in the distal aspect of the common duct, contrast flows into duodenum. Patient's diet was slowly advanced. Patient was having flatus. Abdominal pain improved. Patient was afebrile. He did not have any leukocytosis. Patient also transaminitis on admission which was resolving on discharge. Transaminitis was likely secondary to passing of a stone. Blood cultures were negative. Patient did have a nosebleed on day of discharge. This did resolve on its own. Patient was feeling much better. Patient counseled at length on diet and exercise. Patient was found to have many stones. Patient was cleared for discharge by surgical team on ursodiol. Patient was advised that he will need to remain on this for 6 months. Patient was discharged home. On day of discharge, patient stated he was feeling much better. Patient was tolerating diet and having flatus. Abdominal pain was much better. He denied any nausea or vomiting. No lightheadedness or dizziness. No headaches or change in vision. No fevers or chills. No dysuria. Patient stated he did have a nose bleed which resolved on its own. Physical exam: General: Awake and alert sitting up in chair in no acute distress. HEENT: Normocephalic, atraumatic. Extraocular muscles intact, pupils equal and reactive, no scleral icterus. Oropharynx is pink and moist. No pharyngeal erythema or exudate appreciated. Dry blood seen in left nare. Neck is supple. Cardiovascular: Normal rhythm. Normal S1 and S2. No murmurs, rubs, or gallops appreciated Pulmonary: Normal respiratory effort. No rhonchi, rales, or wheezing appreciated. Gastrointestinal: Soft. Mild distention. Improved generalized tenderness . Positive bowel sounds all 4 quadrants. No guarding. Incision sites clean,dry, and intact. Morbidly obese abdomen. Musculoskeletal: Moves all extremities. No calf tenderness. No edema appreciated. Central nervous system: AAOx3. CN2-12 grossly intact Dermatologic: Skin warm and dry. Please see chart for full details. Follow up instructions: Patient to follow-up with primary care doctor within 3-5 days. to follow up with surgeon within one week. Patient to take ursodiol for 6 months. No heavy lifting for 4-6 weeks.All instructions explained to the patient in detail. Patient both understands and agrees to all instructions. Written instructions also given. Time spent in discharging the patient including chart review, medication reconciliation, discussion with the patient, medical office representative, consultants, and nursing staff was approximately 40 minutes.
--- NOTE | 2019-01-13 22:06 | PCM.OP ---
Operative Report - Operative Report Date of Surgery/Procedure: 01/10/19 Time of Surgery/Procedure: 13:01 Surgeon: Dr. Jo Streetcar Conductor: Dr. Pichardo PGY3, Dr. Mclain PGY4 Anesthesia/Sedation: General Pre-Operative Diagnosis: gallstone pancreatitis Post-Operative Diagnosis: same Indication for Surgery: gallstone pancreatitis Operative Findings: cholelithiasis Procedure/Operation Description: This is Dr. Pichardo dictating an operative for Dr. Jo, note on patient Ti Donaldson , . PROCEDURE1) Laparoscopic cholecystectomy 2) intra-operative cholangiogram PREOP DX: gallstone panreatitis POSTOP DX: same Estimated Blood Loss: 30
--- NOTE | 2019-01-16 08:15 | OP ---
PROCEDURE DATE: 01/10/2019 PROCEDURES DONE: 1. Laparoscopic cholecystectomy. 2. Intraoperative cholangiogram. PREOPERATIVE DIAGNOSIS: Gallstone pancreatitis. POSTOPERATIVE DIAGNOSIS: Gallstone pancreatitis. SURGEON: Rk Jo MD. ASSISTANTS: Sánchez Pichardo DO, PGY-3; Ayush Mclain DO, PGY-4. ANESTHETIC: General anesthesia. INDICATION: The patient, Mendoza Luke, is a very nice 28-year-old male with a past medical history of morbid obesity who presented to [facility] with abdominal pain worsening over a day. The patient stated that his pain is localized to the right upper quadrant, non-radiating, intermittent, and aching in quality. The patient presented to ED as the right upper quadrant pain did not improve. Upon admission, the patient was found to have sign of pancreatitis as well as elevated lipase. The patient is stable for laparoscopic cholecystectomy with intraoperative cholangiogram. DESCRIPTION OF PROCEDURE: The patient was brought to the operating room. A surgical safety checklist was performed. Preoperatively, 2 g of IV Ancef were administered. General anesthesia was induced. In supine position, the abdomen was prepped and draped in the usual sterile fashion. A supraumbilical midline incision was made and carried down to the fascia which was divided exposing the peritoneal cavity. A closed technique was used to enter the peritoneal cavity with a Veress needle, however, after multiple attempts to enter the peritoneal cavity, we have ordered closed technique and decided to enter the peritoneal cavity using an open Austin technique. After successfully entering the abdominal cavity, a 12-mm trocar along with the VisiPort was used to enter the abdomen. Once we noted we entered the abdominal cavity, insufflation was started, and intraabdominal pressure of 15 mmHg was achieved. Subsequently, the common plate were inserted under direct visualization along with local anesthetic in a typical fashion. A 5-mm epigastric port and two 5-mm ports along the right costal margin were made. Peritoneal cavity was inspected and no abnormalities were found. The patient was then placed in reverse Trendelenburg position with the right side up. Omental attachments to the gallbladder were gently swept away until an atraumatic grasper could be used to retract the fundus of the gallbladder superiorly over the dome of the liver. The infundibulum was then identified, and subsequently laterally towards the right lower quadrant using another grasper. This maneuver exposed Calot's triangle very nicely. The peritoneum overlying the gallbladder, infundibulum was incised with electrocautery anteriorly. Then the posterior peritoneum was dissected. The triangle of Calot was dissected to expose the lower third of the cystic plate as well as cystic duct. Once these structures were carefully identified, the cystic artery was divided first and further dissection of the triangle was completed. Once it was determined that the only structure remaining entering the gallbladder was cystic duct, it was doubly clipped and divided. Prior to transecting the cystic duct, an intraoperative cholangiogram was done. A clip was placed in the cystic duct close to the neck of the gallbladder. A rohan was made in the cystic duct and a cholangiogram catheter was started. A cholangiogram was obtained, it showed good flow of bile into the duodenum and intact biliary tree and absence of any filling defects. The electrocautery was then used to separate the peritoneal attachments between the gallbladder and its liver bed. The gallbladder fossa until the gutter was inspected to ensure no bleeding. Hemostasis was achieved for electrocautery. Towards the end of the dissection of the gallbladder from the liver bed, a small perforation was done to the gallbladder, and there was some bowel leakage as well as stones that were expressed from inside the gallbladder into the abdominal cavity. At this point, we continued the gallbladder dissection and once it was free, it was removed from the abdomen to the epigastric port in an endoscopic bag and the specimen was sent to pathology. Afterwards, the abdominal cavity was sterilely irrigated. Some stones remained in the abdominal cavity. So intraoperative decision was made to upsize the epigastric port to a 12-mm port a stone grasper to remove the remainder of the stones. Once all the stones were removed from the anterior abdominal cavity, the liver bed and fossa were thoroughly irrigated. There was no active bleeding noted. irrigation or suction. All ports were removed under direct visualization. The fascia at the supraumbilical port was approximated using 0-Vicryl sutures in an intraoperative fashion. All incisions were closed using 4-0 Biosyn sutures in an interrupted subcuticular fashion. All four incisions were covered with Dermabond. The operative field was cleaned and dried. There were no intraoperative complications and estimated blood loss was approximately 30 mL. All instrument and sponge counts were correct. A surgical debriefing was performed. The patient was extubated and transferred to the PACU in stable condition. Sánchez Pichardo DO Rk Jo MD [facility] # [id number]
--- NOTE | 2019-01-16 08:20 | OP ---
PROCEDURE DATE: 01/10/2019 PROCEDURE: Laparoscopic cholecystectomy with intraoperative cholangiogram. PREOPERATIVE DIAGNOSIS: Gallstone pancreatitis. POSTOPERATIVE DIAGNOSIS: Gallstone pancreatitis. SURGEON: Rk Jo MD ASSISTANTS: Sánchez Pichardo DO, PGY-3; Ayush Mclain DO, PGY-4 TYPE OF ANESTHESIA: General anesthesia. DESCRIPTION OF PROCEDURE: The patient was brought to the operating room where surgical safety checklist was performed. Preoperatively, she received 2 g of IV Ancef. General anesthesia was induced. In supine position, the abdomen was prepped and draped in a sterile fashion. A supraumbilical midline incision was made and carried down to the fascia which was divided, exposing the peritoneal . Initially, a closed technique was used to enter the peritoneal cavity via a Veress needle. However, after multiple attempts, the Veress needle was not successfully paced into the abdominal cavity so the decision was made to convert to an open Austin technique. After doing so, pneumoperitoneum was established through an intraabdominal pressure of 15 mmHg, then the laparoscope was inserted into the abdomen via a 12-mm trocar Visiport. The abdomen was then Subsequently, the following ports were inserted under direct visualization along with local anesthetic in a typical fashion. A 5-mm epigastric port and two 5-mm ports along the right costal margin, the peritoneal cavity was inspected and no abnormalities were found. The patient was then placed in reverse Trendelenburg position with the right side up. Omental attachments of gallbladder were gently swept away until an atraumatic grasper could be used to retract the fundus of the gallbladder superiorly over the dome of the liver. The infundibulum was then identified, and subsequently retracted laterally towards the right lower quadrant using another grasper. This maneuver exposed Calot triangle. The peritoneum overlying the gallbladder infundibulum was incised with electrocautery anteriorly. Then the posterior peritoneum was dissected. The triangle was dissected to expose the cystic artery as well as the lower third of the cystic plate and the cystic duct. Once these structures were carefully identified, the cystic artery was divided first, then further dissection of the triangle was completed. Once it was determined that the only structure remaining entering the gallbladder was the cystic duct, it was doubly clipped and divided. Prior to the division of the cystic duct, an intraoperative cholangiogram was performed. A clip was placed on the cystic duct first to the neck of the gallbladder. A rohan was made in the cystic duct and a cholangiogram catheter was . A cholangiogram was obtained and showed good flow into the duodenum and absence of any filling defects. The electrocautery was used to separate the peritoneal attachments between the gallbladder and its bed in the liver. The gallbladder fossa and cystic artery were inspected to ensure no bleeding. Hemostasis was achieved with electrocautery. There was no leakage of bile from the cystic duct stump. As the gallbladder was deemed free from the liver bed, a small puncture via electrocautery occurred which was then followed by spillage of stone and bile into the abdominal cavity. Once this occurred, we freed the gallbladder from the liver bed and achieved hemostasis. Afterwards, the gallbladder specimen was placed in an endoscopic bag and the specimen was removed through the umbilical port and sent off for Pathology. Afterwards, the abdomen was thoroughly irrigated and the gallstones were removed via suction. Copious irrigation was used along the liver bed and Morison's pouch until no further gallstones were noted, and clear outflow was noted in the suction catheter. The fascia at the supraumbilical and epigastric ports were reapproximated using 0-Vicryl sutures in a [id number] fashion. All incisions were closed using 4-0 Biosyn sutures in an interrupted subcuticular fashion. The operative field was clean and dried. Steri-Strips were not applied, however, Dermabond was used on all incision sites. There were no intraoperative complications and estimated blood loss was approximately 30 mL. All instrument and sponge counts were correct. The patient was extubated and transferred to PACU in stable condition. Sánchez Pichardo DO Rk Jo MD
== END 2019-01-12 14:54 | disposition home or self-care (01) | DRG 493 ==
LOC: ED 10:41 → ERH 12:58 → 5RSO 14:35
PROVIDERS: ADMIT Hospitalist; ATTEND Hospitalist
PROC: BF131ZZ Fluoroscopy of Gallbladder and Bile Ducts using Low Osmolar Contrast (ICD-10-PCS; 2019-01-10)
PROC: 0FT44ZZ Resection of Gallbladder, Percutaneous Endoscopic Approach (ICD-10-PCS; principal; 2019-01-10 09:30)
DX: K85.10 Biliary acute pancreatitis without necrosis or infection (principal); K80.10 Calculus of gallbladder with chronic cholecystitis without obstruction; R04.0 Epistaxis; E66.01 Morbid (severe) obesity due to excess calories; Z68.42 Body mass index [BMI] 45.0-49.9, adult; Z71.3 Dietary counseling and surveillance; Z83.3 Family history of diabetes mellitus